=== PATIENT | male | born 1965 | race Caucasian/White ===

== ENCOUNTER → 2018-07-10 | Outpatient (CLI) | payer BC ==
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
== END | disposition home or self-care (01) ==
LOC: RADCTMAIN 08:43
PROVIDERS: ATTEND Internal Medicine
DX: G44.309 Post-traumatic headache, unspecified, not intractable (principal); Z88.5 Allergy status to narcotic agent
CPT/HCPCS: 70460; Q9967

== ENCOUNTER → 2018-07-16 | Outpatient (CLI) | payer BC | END | disposition home or self-care (01) | LOC: RADUSMAIN 07:49 | PROVIDERS: ATTEND Internal Medicine | DX: Z53.9 Procedure and treatment not carried out, unspecified reason (principal) ==

== ENCOUNTER → 2018-08-13 | Outpatient (CLI) | payer BC ==
[2018-08-13 16:39] LABS: Blood Urea Nitrogen 10 mg/dL (9-20)
--- NOTE | 2018-08-14 08:41 | CT ---
EXAMINATION TYPE: CT abdomen pelvis w con DATE OF EXAM: 08/13/2018 COMPARISON: 11/17/2013 HISTORY: Hematuria and difficulty urinating CT DLP: 1059 mGycm Automated exposure control for dose reduction was used. TECHNIQUE: Helical acquisition of images was performed from the lung bases through the pelvis. CONTRAST: Performed with Oral Contrast and with IV Contrast, patient injected with 100 mL of Isovue 300. FINDINGS: LUNG BASES: No significant abnormality is appreciated. LIVER/GB: There is slightly diminished attenuation of the hepatic parenchyma however this does not me et criteria for hepatic steatosis. Common bile duct is nondilated. PANCREAS: The main pancreatic duct is dilated measuring 4 mm. This is dilated within the pancreatic b tari however no pancreatic mass is seen. This is much more conspicuous on today's examination on the p rior as the prior was without intravenous contrast. SPLEEN: No significant abnormality is seen. ADRENALS: No significant abnormality is seen. KIDNEYS: 1.7 cm right mid to lower pole renal cyst is present. Within the midpole the right kidney th ere are 2 3 mm renal calculi that are nonobstructing. Within the left kidney there is an area of foca l scarring with cortical retraction in the superior pole and nonobstructing renal calculi. In the low er pole there is a 4 mm calculus and in the mid pole there are 2 renal calculi measuring 4 mm and 2 m m. Exophytic 1.9 cm left renal cyst and additional 9 mm renal cysts are also seen on the left. On delayed imaging there is normal and symmetric excretion of contrast from the kidneys with addition al hypoattenuated bilateral subcentimeter renal lesions that are too small to accurately characterize . FREE AIR: No free air is visualized. ADENOPATHY: No greater than 1 cm short axis lymph nodes are seen in the abdomen or pelvis. REPRODUCTIVE ORGANS: Prostate gland is heterogenous although not grossly enlarged. Urinary bladder is incompletely distended but appears unremarkable URINARY BLADDER: No significant abnormality is seen. OSSEOUS STRUCTURES: There is a stable sclerotic lesion, likely bone island within the right iliac fatou ne in comparison to the prior of 2013. BOWEL: No dilated large or small bowel. Appendix is air-filled and within normal limits. IMPRESSION: 1. BILATERAL NONOBSTRUCTING RENAL CALCULI AND BILATERAL RENAL CYSTS. 2. MAIN PANCREATIC DUCTAL DILATATION WITHOUT DISCRETE PANCREATIC LESION. SUSPICION IS FOR MAIN BRANCH IPMN, WHICH DOES CARRY A RISK OF MALIGNANCY. MRCP WITH AND WITHOUT CONTRAST IS RECOMMENDED TO [facility] FOR UNDERLYING PANCREATIC MASS OR IPMN. 3. HETEROGENEITY OF THE PROSTATE GLAND WITHOUT MARKED ENLARGEMENT TO INDICATE BENIGN PROSTATIC HYPERP LASIA IN THIS PATIENT WITH DIFFICULTY URINATING.
== END | disposition home or self-care (01) ==
LOC: RADCTMAIN 16:03
PROVIDERS: ATTEND Urology
DX: N20.0 Calculus of kidney (principal); N28.1 Cyst of kidney, acquired; K86.89 Other specified diseases of pancreas; Z88.5 Allergy status to narcotic agent
CPT/HCPCS: 82565; 84520; 74177; 36415; Q9967

== ENCOUNTER 2018-09-26 20:45 | Emergency (ER) | payer BC ==
[2018-09-26 20:57] VITALS: RESP 16
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
--- NOTE | 2018-09-26 22:10 | XR ---
EXAMINATION TYPE: XR tibia fibula RT DATE OF EXAM: 09/26/2018 COMPARISON: NONE HISTORY: Pain TECHNIQUE: 2 views FINDINGS: I see no fracture nor dislocation. Tibia and fibula appear intact. Joint spaces appear norm al. There is a plantar calcaneal spur. IMPRESSION: Negative right tibia and fibula exam.
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
[2018-09-26 23:02] VITALS: BP 140/78; PULSE 81; TEMP 98.6
== END 2018-09-26 23:00 | disposition home or self-care (01) ==
LOC: EC 20:45
DX: S93.401A Sprain of unspecified ligament of right ankle, initial encounter (principal); F17.200 Nicotine dependence, unspecified, uncomplicated; Z88.5 Allergy status to narcotic agent; V89.2XXA Person injured in unspecified motor-vehicle accident, traffic, initial encounter; Y93.I9 Activity, other involving external motion; Y92.89 Other specified places as the place of occurrence of the external cause
CPT/HCPCS: 73590; 73630; 99284; L4350

== ENCOUNTER 2019-05-31 09:09 | Emergency (ER) | payer BC ==
[2019-05-31 09:16] VITALS: BP 134/86; PULSE 77; RESP 18; TEMP 97.5
[2019-05-31] MEDS ORDERED: guaiFENesin-DM 600/30MG 1 EACH TAB.ER.12H PO STA (09:34)
[2019-05-31 10:09] LABS: Appearance,Urine Clear (Clear); Bilirubin,Urine Negative (Negative); Blood,Urine Negative (Negative); Color,Urine Light Yellow; Glucose,Urine (UA) Negative (Negative); Ketones,Urine Negative (Negative); Leukocyte Esterase,Urine Negative (Negative); Nitrite,Urine Negative (Negative); Protein,Urine Negative (Negative); Specific Gravity,Urine 1.007 (1.001-1.035); Urobilinogen,Urine <2.0 mg/dL (<2.0)
--- NOTE | 2019-05-31 10:13 | ED ---
URI HPI - General Chief Complaint: Upper Respiratory Infection Stated Complaint: Dizziness/weak/body aches Time Seen by Provider: 05/31/19 09:20 Source: patient Mode of arrival: ambulatory Limitations: no limitations - History of Present Illness Initial Comments: 54-year-old male patient presents to the emergency department today for evaluation of cough, nasal drainage, and body aches. Patient states his had symptoms for the last couple of weeks. Patient states he has had improvement of symptoms but doesn't feel completely improved. Denies any known fever. He is coughing up clear sputum. States he has been using his home inhalers including albuterol and Symbicort as directed. Denies any rash. Denies any known sick contacts. Does admit to smoking cigarettes. Patient denies any recent shortness breath, chest pain, abdominal pain, nausea, vomiting, diarrhea, constipation, back pain, numbness, tingling, dizziness, weakness, hematuria, dy suria, urinary urgency, urinary frequency, headache, visual changes, or any other complaints. - Related Data Previous Rx's Medication Instructions Recorded Hydrocodone/Acetaminophen [[place] 1 - 2 each PO Q6HR PRN #30 tab 11/17/13 5-325] Ondansetron Odt [Zofran Odt] 4 mg PO Q8HR PRN #10 tab 11/17/13 Tamsulosin [Flomax] 0.4 mg PO DAILY #10 cap 11/17/13 guaiFENesin-DM 600/30MG [Mucinex 1 each PO Q12HR #10 tab.er.12h 05/31/19 Dm] predniSONE 50 mg PO DAILY #5 tablet 05/31/19 Allergies Allergy/AdvReac Type Severity Reaction Status Date / Time codeine Allergy Anaphylaxis Verified 05/31/19 09:10 Review of Systems ROS Statement: Those systems with pertinent positive or pertinent negative responses have been documented in the HPI. ROS Other: All systems not noted in ROS Statement are negative. Past Medical History Additional Past Medical History / Comment(s): kidney stones History of Any Multi-Drug Resistant Organisms: None Reported Past Surgical History: Hernia Repair Past Psychological History: No Psychological Hx Reported Smoking Status: Current every day smoker Past Alcohol Use History: Daily Past Drug Use History: None Reported General Exam Limitations: no limitations General appearance: alert, in no apparent distress, other (This is a well- developed, well-nourished adult male patient in no acute distress. Vital signs upon presentation are temperature 97.5F. Pulse 77, respirations 18, blood pressure 134/86, pulse ox 98% on room air.) Eye exam: Present: normal appearance, PERRL, EOMI. Absent: scleral icterus, conjunctival injection, periorbital swelling ENT exam: Present: normal exam, normal oropharynx, mucous membranes moist, TM's normal bilaterally Neck exam: Present: normal inspection. Absent: tenderness, meningismus, lymphadenopathy Respiratory exam: Present: normal lung sounds bilaterally. Absent: respiratory distress, wheezes, rales, rhonchi, stridor Cardiovascular Exam: Present: regular rate, normal rhythm, normal heart sounds. Absent: systolic murmur, diastolic murmur, rubs, gallop, clicks GI/Abdominal exam: Present: soft, normal bowel sounds. Absent: distended, tenderness, guarding, rebound, rigid Neurological exam: Present: alert, oriented X3, CN II-XII intact Psychiatric exam: Present: normal affect, normal mood Skin exam: Present: warm, dry, intact, normal color. Absent: rash Course Vital Signs 05/31/19 09:11 Temperature 97.5 F L Pulse Rate 77 Respiratory 18 Rate Blood Pressure 134/86 O2 Sat by Pulse 98 Oximetry Medical Decision Making - Medical Decision Making 54-year-old male patient presents to the emergency department today for evaluation of cough and nasal drainage, and body aches. Patient states that symptoms for the last 2 weeks. Physical examination reveals clear equal lung sounds. Oxygen saturation is satisfactory. Influenza testing is negative. Chest x-ray shows no acute cardiopulmonary process. Urinalysis is negative. Did discuss findings and results with the patient. We'll treat for acute bronchitis with steroids and Mucinex DM. He is instructed to increase fluids and rest. He is instructed to follow-up with his primary care physician for further evaluation in 1-2 days. Return parameters were discussed in detail. He verbalizes understanding and agrees with this plan. - Lab Data Lab Results 05/31/19 05/31/19 Range/Units 09:46 09:46 Urine Color Light Yellow Urine Appearance Clear (Clear) Urine pH 6.0 (5.0-8.0) Ur Specific [place] 1.007 (1.001-1.035) Urine Protein Negative (Negative) Urine Glucose (UA) Negative (Negative) Urine Ketones Negative (Negative) Urine Blood Negative (Negative) Urine Nitrite Negative (Negative) Urine Bilirubin Negative (Negative) Urine Urobilinogen <2.0 (<2.0) mg/dL Ur Leukocyte Esterase Negative (Negative) Influenza Type A RNA Not Detected (Not Detectd) Influenza Type B (PCR) Not Detected (Not Detectd) - Radiology Data Radiology results: report reviewed, image reviewed Two-view x-ray of the chest is obtained. Report was reviewed in its entirety. Impression by Dr. Shankar shows no suspicious acute pulmonary process. Disposition Clinical Impression: Acute bronchitis Disposition: HOME SELF-CARE Condition: Good Instructions (If sedation given, give patient instructions): Acute Bronchitis (ED) Additional Instructions: Complete steroid prescription in full. Follow-up with your primary care physician for recheck in 1-2 days. Return to the emergency department immediately for any new, worsening, or concerning symptoms. Prescriptions: guaiFENesin-DM 600/30MG [Mucinex Dm] 1 each PO Q12HR #10 tab.er.12h predniSONE 50 mg PO DAILY #5 tablet Is patient prescribed a controlled substance at d/c from ED?: No Referrals: Arturo Esparza MD [Primary Care Provider] - 1-2 days Time of Disposition: 10:40
--- NOTE | 2019-05-31 10:28 | XR ---
EXAMINATION TYPE: XR chest 2V DATE OF EXAM: 05/31/2019 COMPARISON: NONE HISTORY: Cough for 2 weeks. TECHNIQUE: Frontal and lateral views of the chest are obtained. FINDINGS: There is no focal air space opacity, pleural effusion, or pneumothorax seen. The cardiac silhouette size is within normal limits. The osseous structures are intact. IMPRESSION: No suspicious acute pulmonary process.
[2019-05-31] MEDS ORDERED: predniSONE 50 MG TAB PO STA (10:40)
== END 2019-05-31 11:30 | disposition home or self-care (01) ==
LOC: EC 09:09
DX: J20.9 Acute bronchitis, unspecified (principal); F17.210 Nicotine dependence, cigarettes, uncomplicated; Z88.5 Allergy status to narcotic agent
CPT/HCPCS: 81003; 87502; 71046; 99283; J7512

== ENCOUNTER 2020-08-01 06:34 | Observation (INO) | payer BC ==
--- NOTE | 2020-08-01 06:54 | ED ---
Neuro HPI - General Source: patient Mode of arrival: ambulatory Limitations: no limitations - History of Present Illness Is the patient presenting with stroke symptoms?: Yes Last Known Well Date: 08/01/20 Last Known Well Time: 04:00 Onset/Timin -: minutes(s) <Katy Guerrero - Last Filed: 08/01/20 08:40> <Efrain Mcrae - Last Filed: 08/01/20 08:53> - General Chief Complaint: Neuro Symptoms/Deficit Stated Complaint: Neuro Symptoms Time Seen by Provider: 08/01/20 06:42 - History of Present Illness Initial Comments: 55-year-old male who denies any past medical history or daily medications, current every day smoker presents emergency department today for chief complaint of left arm sensation changes, speech feels different, "just doesnt feel well". Patient states that around 4 AM when he woke up he just did not feel well. He states that he felt like his left arm was a different temperature than the right arm he states it felt kind of sleepy and uncomfortable. He denies severe pain as a chest pressure jaw pain-- he states he smokes and uses and inhaler and has chronic shortness of breath, when asked if it has increased he states "maybe a little but not much". He denies any nausea, vomiting, fevers. Patient states that he co-workers felt like he was not acting right and brought him to the ER. Patient states in addition he feels light headed, slightly dizzy. He denies headaches. Patient denies vision loss/changes or double vision. Patient denies noting weakness of the extremities, only the left arm sensation change. Patient on arrival has no obvious speech changes, it appears clear and he is formulating his sentences appropriately. (Katy Guerrero) - Related Data Home Medications: Home Medications Medication Instructions Recorded Confirmed Albuterol Inhaler [Ventolin Hfa 1 - 2 puff INHALATION RT-Q4H PRN 08/01/20 08/01/20 Inhaler] Fluticasone/Umeclidin/Vilanter 1 puff INHALATION RT-DAILY 08/01/20 08/01/20 [Treheidi Ellipta 100-62.5-25] Allergies/Adverse Reactions: Allergies Allergy/AdvReac Type Severity Reaction Status Date / Time codeine Allergy Anaphylaxis Verified 08/01/20 07:30 Review of Systems ROS Other: All systems not noted in ROS Statement are negative. <Katy Guerrero - Last Filed: 08/01/20 08:40> ROS Other: All systems not noted in ROS Statement are negative. <Efrain Mcrae - Last Filed: 08/01/20 08:53> ROS Statement: Those systems with pertinent positive or pertinent negative responses have been documented in the HPI. General Exam Limitations: no limitations <Katy Guerrero - Last Filed: 08/01/20 08:40> - General Exam Comments Initial Comments: General: The patient is awake and alert, in no distress Eye: +2 mm pupils are equal, round and reactive to light, extra-ocular movements are intact. No nystagmus. There is normal conjunctiva bilaterally. No signs of icterus. Ears, nose, mouth and throat: There are moist mucous membranes and no oral lesions. Neck: The neck is supple, there is no tenderness or JVD. Cardiovascular: There is a regular rate and rhythm. No murmur, rub or gallop is appreciated. Respiratory: Lungs are clear to auscultation, respirations are non-labored, breath sounds are equal. No wheezes, stridor, rales, or rhonchi. Gastrointestinal: Soft, non-distended, non-tender abdomen without masses or organomegaly noted. There is no rebound or guarding present. Musculoskeletal: Normal ROM, no tenderness. Strength 5/5. Sensation intact. Pulses equal bilaterally 2+. Neurological: A&O x 3. CN II-XII intact, memory intact to immediately, intermediate and jail recall. Able to follow simple verbal. Able to name a common object (pen). High quality, labial (pa) and lingual (la) speech. Low quality posterior pharynx/larynx (ga) voice sounds. Able to express general knowledge (days in a week). No hemineglect or inattention noted. Finger agnosia (-) and spatially oriented (identified L index finger touched R shoulder with L index finger).Light touch and temperature sensation present over the face, chest, abdomen, back, and LE bilaterally--however patient states that his left arm feels different to touch, less than the right and warmer/fuzzier. Able to localize point during point localization b/l and extinction. No visible bulk atrophy, hypertrophy, fasciculations, or myoclonus of the UE or LE b/l. Full PROM in UE and LE b/l. Bilateral muscle strength 5/5 for the following muscles: deltoid, biceps, triceps, brachioradialis, wrist extensors/flexor, hip flexor, hip abductors/adductors, hamstrings, quadriceps, feet dorsiflexors/plantar flexors. Finger to nose, finger to the examiners finger, and heel to chowdhury c oordinated and accurate b/l. Coordinated and even demonstration of hand flip, finger to thumb, and toe tap b/l. Gait is coordinated and even in stride with tandem, toe and heel walk.(+) left arm drift. No nuchal rigidity. Skin: Skin is warm and dry and no rashes or lesions are noted. Psychiatric: Cooperative, appropriate mood & affect, normal judgment. NIH: 2 from exam 2-3 as patient feels his speech is off, but does appear clear (Katy Guerrero) Stroke MDM - Lab Data Result diagrams: 08/01/20 06:57 08/01/20 06:57 - NIH Stroke Scale 1a. Level of Consciousness: (0) alert 1b. LOC Questions: (0) answers correctly 1c. LOC Commands: (0) performs tasks correctly 2. Best Gaze: (0) normal 3. Visual: (0) no visual loss 4. Facial Palsy: (0) normal symmetrical movement 5a. Motor Arm Left: (1) drift 5b. Motor Arm Right: (0) no drift 6a. Motor Leg Left: (0) no drift 6b. Motor Leg Right: (0) no drift 7. Limb Ataxia: (0) absent 8. Sensory: (1) mild/moderate sensory loss 9. Best Language: (0) no aphasia 10. Dysarthria: (0) normal 11. Extinction/Inattention: (0) no abnormality - Thrombolytic Inclusion/Exclusion Thrombolytic Exclusion Criteria: Onset of Symptoms Unknown <Katy Guerrero - Last Filed: 08/01/20 08:40> - Lab Data Result diagrams: 08/01/20 06:57 08/01/20 06:57 <Efrain Mcrae - Last Filed: 08/01/20 08:53> - Lab Data Lab Results 08/01/20 08/01/20 08/01/20 Range/Units 06:57 06:57 06:57 WBC 6.4 (3.8-10.6) k/uL RBC 5.06 (4.30-5.90) m/uL Hgb 15.7 (13.0-17.5) gm/dL Hct 46.0 (39.0-53.0) % MCV 91.0 (80.0-100.0) fL MCH 31.0 (25.0-35.0) pg MCHC 34.1 (31.0-37.0) g/dL RDW 12.6 (11.5-15.5) % Plt Count 191 (150-450) k/uL MPV 7.0 Neutrophils % 61 % Lymphocytes % 28 % Monocytes % 6 % Eosinophils % 3 % Basophils % 1 % Neutrophils # 3.9 (1.3-7.7) k/uL Lymphocytes # 1.8 (1.0-4.8) k/uL Monocytes # 0.4 (0-1.0) k/uL Eosinophils # 0.2 (0-0.7) k/uL Basophils # 0.1 (0-0.2) k/uL PT 10.3 (9.0-12.0) sec INR 1.0 (<1.2) APTT 20.7 L (22.0-30.0) sec Sodium 135 L (137-145) mmol/L Potassium 4.3 (3.5-5.1) mmol/L Chloride 104 (98-107) mmol/L Carbon Dioxide 25 (22-30) mmol/L Anion Gap 6 mmol/L BUN 11 (9-20) mg/dL Creatinine 0.84 (0.66-1.25) mg/dL Est GFR (CKD-EPI)AfAm >90 (>60 ml/min/1.73 sqM) Est GFR (CKD-EPI)NonAf >90 (>60 ml/min/1.73 sqM) Glucose 122 H (74-99) mg/dL Calcium 9.2 (8.4-10.2) mg/dL Total Bilirubin 0.8 (0.2-1.3) mg/dL AST 22 (17-59) U/L ALT 16 (4-49) U/L Alkaline Phosphatase 42 (38-126) U/L Troponin I (0.000-0.034) ng/mL Total Protein 6.7 (6.3-8.2) g/dL Albumin 4.3 (3.5-5.0) g/dL 08/01/20 Range/Units 06:57 WBC (3.8-10.6) k/uL RBC (4.30-5.90) m/uL Hgb (13.0-17.5) gm/dL Hct (39.0-53.0) % MCV (80.0-100.0) fL MCH (25.0-35.0) pg MCHC (31.0-37.0) g/dL RDW (11.5-15.5) % Plt Count (150-450) k/uL MPV Neutrophils % % Lymphocytes % % Monocytes % % Eosinophils % % Basophils % % Neutrophils # (1.3-7.7) k/uL Lymphocytes # (1.0-4.8) k/uL Monocytes # (0-1.0) k/uL Eosinophils # (0-0.7) k/uL Basophils # (0-0.2) k/uL PT (9.0-12.0) sec INR (<1.2) APTT (22.0-30.0) sec Sodium (137-145) mmol/L Potassium (3.5-5.1) mmol/L Chloride (98-107) mmol/L Carbon Dioxide (22-30) mmol/L Anion Gap mmol/L BUN (9-20) mg/dL Creatinine (0.66-1.25) mg/dL Est GFR (CKD-EPI)AfAm (>60 ml/min/1.73 sqM) Est GFR (CKD-EPI)NonAf (>60 ml/min/1.73 sqM) Glucose (74-99) mg/dL Calcium (8.4-10.2) mg/dL Total Bilirubin (0.2-1.3) mg/dL AST (17-59) U/L ALT (4-49) U/L Alkaline Phosphatase (38-126) U/L Troponin I <0.012 (0.000-0.034) ng/mL Total Protein (6.3-8.2) g/dL Albumin (3.5-5.0) g/dL - Medical Decision Making 55-year-old male presenting today for chief complaint of feeling off, sensation deficit left arm--speech changes this morning that he states seemed improved. NIH2. Symptoms were noticed at 4AM but this was on awakening. Last known well around 8PM. Patient had improvement of sensation (resolved) and improved partially of left arm drift on personal re-evaluation. patient state she is starting to feel better. Patient CT/CTA (-). Neuro-tilt tray driver stated pt was not TPA candidate. Patient case discussed with both Dr. Bowden initially then Dr. Mcrae whom were my attending who are agreeable to admission and care plan. Neurology on consultation. (Katy Guerrero) Past Medical History Additional Past Medical History / Comment(s): kidney stones History of Any Multi-Drug Resistant Organisms: None Reported Past Surgical History: Hernia Repair Past Psychological History: No Psychological Hx Reported Smoking Status: Current every day smoker Past Alcohol Use History: Occasional Past Drug Use History: None Reported <Katy Guerrero - Last Filed: 08/01/20 08:40> Course <Katy Guerrero - Last Filed: 08/01/20 08:40> <Efrain Mcrae - Last Filed: 08/01/20 08:53> Vital Signs 08/01/20 08/01/20 08/01/20 06:34 07:00 07:30 Temperature 98 F Pulse Rate 74 71 61 Respiratory 20 18 16 Rate Blood Pressure 145/93 134/87 O2 Sat by Pulse 98 98 99 Oximetry 08/01/20 08/01/20 07:50 08:13 Temperature Pulse Rate 62 58 L Respiratory 18 18 Rate Blood Pressure 144/91 136/83 O2 Sat by Pulse 98 98 Oximetry - Reevaluation(s) Reevaluation #1: Dr. Bowden spoke with neuro-tilt tray driver- who felt this is wake up stroke/and given NIH that he is not TPA candidate at this time. 08/01/20 07:08 (Katy Guerrero) 08/01/20 08:52 Patient was earlier reexamined and reevaluated by myself, Dr. Mcrae. Patient resting complain bed. Patient does have drift of his left arm on exam. Patient states there is some mild discomfort of his left upper trapezius/shoulder region. No tenderness on exam. No C-spine tenderness. Patient denies neck d iscomfort. There is concern for mild stroke symptoms. Patient will be admitted for neurology evaluation. Case discussed with Dr. Moscoso, who will admit covering for Dr. corey (Efrain Mcrae) Disposition Is patient prescribed a controlled substance at d/c from ED?: No Time of Disposition: 08:16 Decision to Admit Reason: Admit from EC Decision Date: 08/01/20 Decision Time: 08:16 <Katy Guerrero - Last Filed: 08/01/20 08:40> <Efrain Mcrae - Last Filed: 08/01/20 08:53> Clinical Impression: National Institutes of Health (NIH) Stroke Scale motor arm score 1, drift, arm drifts from starting position (palms down extended 90 degrees if sitting or 45 degrees if supine) to intermediate position prior to end of full 10 seconds but never relies on support, Alteration in speech, Light-headed, Paresthesia of left arm Disposition: ADMITTED IP TO THIS [facility] Condition: Stable
[2020-08-01 07:08] LABS: Basophils # (A) 0.1 k/uL (0-0.2); Basophils % (A) 1 %; Eosinophils # (A) 0.2 k/uL (0-0.7); Eosinophils % (A) 3 %; HGB 15.7 gm/dL (13.0-17.5); Lymphocytes # (A) 1.8 k/uL (1.0-4.8); Lymphocytes % (A) 28 %; MCHC 34.1 g/dL (31.0-37.0); Monocytes # (A) 0.4 k/uL (0-1.0); Monocytes % (A) 6 %; Neutrophils # (A) 3.9 k/uL (1.3-7.7); Neutrophils % (A) 61 %; Platelet Count 191 k/uL (150-450); RBC 5.06 m/uL (4.30-5.90); RDW 12.6 % (11.5-15.5); WBC 6.4 k/uL (3.8-10.6)
[2020-08-01 07:16] LABS: Prothrombin Time 10.3 sec (9.0-12.0)
[2020-08-01 07:17] LABS: ALT 16 U/L (4-49); AST 22 U/L (17-59); African American GFR (CKD) >90 (>60 ml/min/1.73 sqM); Albumin 4.3 g/dL (3.5-5.0); Alkaline Phosphatase 42 U/L (38-126); Anion Gap 6 mmol/L; Blood Urea Nitrogen 11 mg/dL (9-20); Calcium 9.2 mg/dL (8.4-10.2); Carbon Dioxide 25 mmol/L (22-30); Chloride 104 mmol/L (98-107); Glucose 122 mg/dL (74-99); Non-African American GFR(CKD) >90 (>60 ml/min/1.73 sqM); Potassium 4.3 mmol/L (3.5-5.1); Sodium 135 mmol/L (137-145); Total Bilirubin 0.8 mg/dL (0.2-1.3); Total Protein 6.7 g/dL (6.3-8.2)
--- NOTE | 2020-08-01 07:27 | CT ---
EXAMINATION TYPE: CT brain wo con for TPA DATE OF EXAM: 08/01/2020 HISTORY: Neuro deficit, left arm weakness and headache. CT DLP: 1118.8 mGycm. Automated Exposure Control for Dose Reduction was Utilized. TECHNIQUE: CT scan of the head is performed without contrast. COMPARISON: CT brain July 10, 2018. FINDINGS: There is no acute intracranial hemorrhage or midline shift identified. Ventricles and sul ci within normal limits in size for age. Smith-white matter differentiation maintained. The globes ar e intact and the visualized sinuses are clear. IMPRESSION: No acute intracranial hemorrhage or midline shift. No significant change from prior.
--- NOTE | 2020-08-01 07:28 | XR ---
EXAMINATION TYPE: XR chest 1V DATE OF EXAM: 08/01/2020 COMPARISON: Chest x-ray May 31, 2019 HISTORY: Acute onset neuro deficit. Weakness. TECHNIQUE: Single AP portable frontal upright view of the chest is obtained. FINDINGS: Overlying EKG leads. There is no suspicious focal air space opacity, pleural effusion, or p neumothorax seen. The cardiac silhouette size is within normal limits. The osseous structures are intact. IMPRESSION: No acute process. No significant change from prior.
[2020-08-01 07:37] LABS: Partial Thromboplastin Time 20.7 sec (22.0-30.0)
[2020-08-01] MEDS ORDERED: ASPIRIN 325 MG TAB PO STA (08:13)
--- NOTE | 2020-08-01 08:20 | CT ---
EXAMINATION TYPE: CT angio head neck DATE OF EXAM: 08/01/2020 COMPARISON: Correlation CT brain same day HISTORY: 55-year-old male Neuro deficit, acute, stroke suspected, left arm weakness and headache. TECHNIQUE: Contiguous axial scanning of the head and neck performed with IV Contrast, patient injecte d with 65 mL of Isovue 370. Coronal/sagittal MIP reconstructions performed. 3-D reconstructions gener ated on a dedicated independent workstation. CT DLP: 580 mGycm Automated exposure control for dose reduction was used. FINDINGS: NECK: Bovine configuration to the aortic arch. The vertebral arteries are codominant and patent throughout their course. The right common and internal carotid arteries are widely patent. The left common and internal carotid arteries are widely patent. HEAD: The vertebral and basilar arteries are patent. There is persistent origin of the right posterio r cerebral artery. Posterior circulation otherwise appears patent. The internal carotid arteries and remainder of the anterior circulation are patent. No aneurysmal change seen on the MIP reconstructions. IMPRESSION: 1. NECK: WIDELY PATENT CAROTID AND VERTEBRAL ARTERIES OF THE NECK. 2. HEAD: NO LARGE VESSEL INTRACRANIAL ARTERIAL OCCLUSION, SIGNIFICANT STENOSIS, OR ANEURYSMAL CHANGE IS SEEN.
[2020-08-01] MEDS ORDERED: ALBUTEROL NEBULIZED 2.5 MG/3 ML INHALATION PRN (10:33)
[2020-08-01 10:58] LABS: Appearance,Urine Clear (Clear); Bilirubin,Urine Negative (Negative); Blood,Urine Moderate (Negative); Color,Urine Yellow; Glucose,Urine (UA) Negative (Negative); Ketones,Urine Negative (Negative); Leukocyte Esterase,Urine Negative (Negative); Mucus,Urine Rare /hpf; Nitrite,Urine Negative (Negative); Protein,Urine Negative (Negative); RBC,Urine 181 /hpf (0-5); Urobilinogen,Urine <2.0 mg/dL (<2.0); WBC,Urine 1 /hpf (0-5)
[2020-08-01 11:05] LABS: Amphetamine Screen,Urine Not Detected (NotDetected); Barbiturate Screen,Urine Not Detected (NotDetected); Benzodiazepines Screen,Urine Not Detected (NotDetected); Cocaine Screen,Urine Not Detected (NotDetected); Methadone Screen, Urine Not Detected (NotDetected); Opiate Screen,Urine Not Detected (NotDetected); Oxycodone Screen, Urine Not Detected (NotDetected); Phencyclidine Screen,Urine Not Detected (NotDetected); Tricyclic Antidepressant,Urine Not Detected (NotDetected); Urn Cannabinoid Scrn Not Detected (NotDetected)
[2020-08-01 11:06] LABS: Specific Gravity,Urine >1.050 (1.001-1.035)
--- NOTE | 2020-08-01 12:42 | P.CNNES ---
History of Present Illness Consult date: 08/01/20 Requesting physician: Katy Guerrero Reason for Consult: sensation loss over left arm and speech difficulty concern for cva History of Present Illness: This is a 55-year-old gentleman with no prior medical history or not on any medication but has history of tobacco use who presented emergency department on 08/01/2020 with a chief complaint of left arm sensation change as well as speech feels different. Patient stated that he woke up 4:00 in the morning today and was last normal at 9:00 in the PM yesterday and when he woke up he noticed that he's having left shoulder pain that was shooting down to the entire left hand and then as well as the neck and was reading up as well as he had that difficulty getting his words out and and he noticed that his left hand was weak in which the the cup dropped out of the left hand. The episode lasted 3 hours then resolved. He denies of any visual disturbance, any neck pain, any paresthesia of the lower examined or weakness of lower extremity, any difficulty swallowing. He feels he is back to his baseline. He denies of any stroke or TIAs in the past. He has a chronic history of tobacco use in which she smokes 3/4-1 pack a day and he's been smoking for more than 30 years. He socially drinks alcohol. He denies being on any medication. Patient denies off any fevers or any headaches. As a result the stroke code was activated in the ED: Initial vital signs: As a blood pressure of 145/93, heart rate of 71, respiratory of 18, temperature of 98F oral and pulse ox of 98% at room air. CT of the head is reported as no acute intracranial hemorrhage or midline shift. No significant change from prior. CT angiography of the head and neck was reported as for the neck it's reported as widely patent carotid and vertebral arteries of the neck. While the head no large vessel intracranial arterial occlusion, significant stenosis or aneurysm changes seen. EKG is reported as normal sinus rhythm. Normal EKG. White blood cell 6.4 which is normal. Sodium is 135 which is mildly low. Serum glucose is 122. The serum calcium is 9.2 which is normal. Patient did not receive IV TPA since the outside the window as well as symptoms resolved. Review of Systems Review of system: The 12 point system was reviewed and apparent positive and negative per HPI. Past Medical History Past Medical History: COPD, Eye Disorder, GERD/Reflux Additional Past Medical History / Comment(s): Chronic SOB, nephrolithiasis/pt passed stones on his own, diarrhea/abdomina feels bloated, chronic L hip and low back pain, bilatateral eye "floaters", past concussion/arm fx after 32 foot fall History of Any Multi-Drug Resistant Organisms: None Reported Past Surgical History: Hernia Repair, Orthopedic Surgery Additional Past Surgical History / Comment(s): R thumb closed reduction/pinning, colonoscopy, L inguinal hernia repair. Past Anesthesia/Blood Transfusion Reactions: No Reported Reaction Smoking Status: Current every day smoker - Past Family History Father Family Medical History: Coronary Artery Disease (CAD), Myocardial Infarction (VA), Renal Disease Additional Family Medical History / Comment(s): Father is living. He had a VA at the age of 78yrs. He is receiving renal dialysis. Mother Additional Family Medical History / Comment(s): Mother is . She had a colectomy/pt does not know reason and heart problems. Medications and Allergies Home Medications Medication Instructions Recorded Confirmed Type Albuterol Inhaler [Ventolin Hfa 1 - 2 puff INHALATION RT-Q4H PRN 08/01/20 08/01/20 History Inhaler] Fluticasone/Umeclidin/Vilanter 1 puff INHALATION RT-DAILY 08/01/20 08/01/20 History [Trelegy Ellipta 100-62.5-25] Allergies Allergy/AdvReac Type Severity Reaction Status Date / Time codeine Allergy Anaphylaxis Verified 08/01/20 07:30 Physical Examination - Vital Signs Vital Signs: Vital Signs Temp Pulse Pulse Resp BP BP Pulse Ox 08/01/20 09:56 97.6 F 56 L 16 133/77 96 08/01/20 08:42 97.6 F 08/01/20 08:13 58 L 18 136/83 98 08/01/20 07:50 62 18 144/91 98 08/01/20 07:30 61 16 134/87 99 08/01/20 07:00 71 18 145/93 98 08/01/20 06:34 98 F 74 20 98 Intake and Output 07/31/20 08/01/20 08/01/20 22:59 06:59 14:59 Other: Voiding Method Toilet Weight 68.039 kg 68.039 kg GENERAL: The patient is lying in bed and is not in acute distress. CHEST: The heart rate is regular rate rhythm. No murmurs to auscultation. No carotid bruit bilaterally. LUNG: Clear to auscultation bilaterally no wheezing noted throughout. Not labored breathing. ABDOMEN/GI: Bowel sounds present in all 4 quadrants. No tenderness to palpation throughout. NEUROLOGICAL: Higher mental function: The patient is awake, alert, oriented to self, place and time. Patient is following commands. No aphasia and no neglect. Cranial nerves: The pupils are round, equal and reactive to light and accommodation. Visual locke are full to confrontation throughout. Extraocular movement is intact no nystagmus is noted. Facial sensation is normal to touch throughout. The facial strength is normal throughout. Hearing is normal bilaterally to hand rub. Tongue is midline and moved [id number] without any difficulty. No dysarthria is noted. Shoulder shrug is normal bilaterally. Motor: Gait is normal with normal arm swings. The strength is 5 over 5 throughout. Normal tone and bulk. Cerebellum: Normal finger to nose heel to chowdhury bilaterally. Sensation: Sensation is normal to touch throughout. Reflexes (right/left): 2+ throughout. Plantars are downgoing bilaterally. Results AST is 22 and ALT of 16. Urine tox screen the basic is nondetected Kruse virus PCR is nondetected. Urinalysis appears clear, urine blood is moderate, urine red blood cell is 181 - Laboratory Findings CBC and BMP: 08/01/20 06:57 08/01/20 06:57 Abnormal Lab Findings: Abnormal Labs 08/01/20 08/01/20 08/01/20 06:52 06:57 06:57 APTT 20.7 L Sodium 135 L Glucose 122 H Ur Specific [place] >1.050 H Urine Blood Moderate H Urine RBC 181 H Urine Mucus Rare H Assessment and Plan Assessment: This is a 55-year-old gentleman that presented to emergency department on 08/01/2020 for pareshesia over the left upper extremity and difficulty getting words out with left arm weakness. His symptoms resolved. Transient ischemic attack (Episode of paresthesia over left upper extremity, with weakness and difficulty getting words out lasting couple hours). Unknow exact etiology, possibly small vessel disease. Chronic History of nicotine use (smokes 3/4 PPD t 1PPD >30 years) Plan: Patient received aspirin 325 once in the ED. I started the patient on aspirin 81 mg and plavix 75mg for dual antiplateletes then discontinue Plavix after 21 days but continue ASA indefidently for secondary stroke prophyalxis. I started him on Lipitor 40 mg for secondary stroke prophylaxis. I ordered MRI of the brain I ordered 2-D echo Lipid panel is ordered by the ED team is pending. PT OT and COUTIERIER are consulted by the ED team Continue every 4 neuro checks. Patient on the cardiac monitoring is to be continued. Patient was counseled on tobacco cessation. Thank you for the consultation Yuval Grace M.D. Neuro-hospitalist Time with Patient: Greater than 30
[2020-08-01] MEDS: CLOPIDOGREL 75 MG TAB PO SCH (13:00)
--- NOTE | 2020-08-01 15:42 | MR ---
EXAMINATION TYPE: MR brain wo con DATE OF EXAM: 08/01/2020 COMPARISON: CT brain 08/01/2020 HISTORY: Left arm paresthesia and speech difficulty CONTRAST: Performed utilizing 0 mL intravenous Gadavist gadolinium contrast. TECHNIQUE: Multiplanar, multiecho imaging on a 3.0 Megan magnet is performed through the brain. Stud y is performed within 24 hours of arrival to the hospital. The craniovertebral junction is normal. The pituitary is normal. Diffusion-weighted imaging is performed. No abnormal hyperintensity is present to suggest an acute i ntracranial infarct or acute ischemic change. There are scattered punctate areas of hyperintensity on T2 and Inversion Recovery weighted sequences which are non-specific but can be related to microvascular ischemic changes. This is greater than exp ected for patients of this age. Ventricles and sulci are appropriate for the patient age. IMPRESSIONS: 1. Chronic appearing periventricular white matter ischemic changes. 2. No suspicious acute ischemic changes
[2020-08-01] MEDS: NICOTINE 21MG/24HR PATCH TRANSDERM SCH (17:47)
[2020-08-01] MEDS ORDERED: ATORVASTATIN 40 MG TAB PO SCH (21:00)
[2020-08-02] MEDS: IPRATROPIUM 0.5 MG/2.5 ML NEBU INHALATION SCH ×2 (07:19→10:58)
[2020-08-02 07:44] LABS: Basophils # (A) 0.1 k/uL (0-0.2); Basophils % (A) 1 %; Eosinophils # (A) 0.2 k/uL (0-0.7); Eosinophils % (A) 2 %; HCT 48.8 % (39.0-53.0); HGB 16.5 gm/dL (13.0-17.5); Lymphocytes # (A) 2.2 k/uL (1.0-4.8); Lymphocytes % (A) 29 %; MCH 31.3 pg (25.0-35.0); MCHC 33.8 g/dL (31.0-37.0); MCV 92.6 fL (80.0-100.0); Mean Platelet Volume 6.9; Monocytes # (A) 0.4 k/uL (0-1.0); Monocytes % (A) 5 %; Neutrophils # (A) 4.6 k/uL (1.3-7.7); Neutrophils % (A) 61 %; Platelet Count 208 k/uL (150-450); RBC 5.27 m/uL (4.30-5.90); RDW 12.6 % (11.5-15.5); WBC 7.5 k/uL (3.8-10.6)
[2020-08-02 07:57] LABS: African American GFR (CKD) >90 (>60 ml/min/1.73 sqM); Anion Gap 7 mmol/L; Blood Urea Nitrogen 12 mg/dL (9-20); Calcium 9.1 mg/dL (8.4-10.2); Carbon Dioxide 26 mmol/L (22-30); Chloride 102 mmol/L (98-107); Cholesterol 233 mg/dL (<200); Glucose 105 mg/dL (74-99); HDL Cholesterol 45 mg/dL (40-60); LDL Cholesterol,Calculated 161 mg/dL (0-99); Non-African American GFR(CKD) >90 (>60 ml/min/1.73 sqM); Potassium 4.4 mmol/L (3.5-5.1); Sodium 135 mmol/L (137-145); Triglycerides 136 mg/dL (<150)
[2020-08-02] MEDS ORDERED: SYMBICORT 80-4.5 MCG INHALER INHALATION SCH (08:00)
[2020-08-02] MEDS: CLOPIDOGREL 75 MG TAB PO SCH (08:42)
[2020-08-02] MEDS: NICOTINE 21MG/24HR PATCH TRANSDERM SCH (08:43)
[2020-08-02] MEDS ORDERED: ASPIRIN 81 MG PO SCH (09:00)
--- NOTE | 2020-08-02 09:30 | P.HPIM ---
History of Present Illness H&P Date: 08/01/20 Chief Complaint: Left arm numbness 55-year-old male who denies any past medical history or daily medications, current every day smoker presents emergency department today for chief complaint of left arm sensation changes, speech feels different, "just doesnt feel well". Patient states that around 4 AM when he woke up he just did not feel well. He states that he felt like his left arm was a different temperature than the right arm he states it felt kind of sleepy and uncomfortable. He denies severe pain as a chest pressure jaw pain-- he states he smokes and uses and inhaler and has chronic shortness of breath, when asked if it has increased he states "maybe a little but not much". He denies any nausea, vomiting, fevers. Patient states that he co-workers felt like he was not acting right and brought him to the ER. Patient states in addition he feels light headed, slightly dizzy. He denies headaches. Patient denies vision loss/changes or double vision. Patient denies noting weakness of the extremities, only the left arm sensation change. Patient on arrival has no obvious speech changes, it appears clear and he is formulating his sentences appropriately. In the ED stroke code was activated: CT of the head-no acute intracranial hemorrhage or midline shift. No significant change from prior. CT angiography of the head and neck was reported as for the neck it's reported as widely patent carotid and vertebral arteries of the neck. While the head no large vessel intracranial arterial occlusion, significant stenosis or aneurysm changes seen. EKG is reported as normal sinus rhythm. Normal EKG. White blood cell 6.4 which is normal; Sodium is 135 which is mildly low; Serum glucose is 122. The serum calcium is 9.2 which is normal. Patient did not receive IV TPA since the outside the window as well as symptoms resolved. Review of Systems REVIEW OF SYSTEMS: CONSTITUTIONAL: No fever, no malaise, no fatigue. HEENT: No recent visual problems or hearing problems. Denied any sore throat. CARDIOVASCULAR: No chest pain, orthopnea, PND, no palpitations, no syncope. PULMONARY: No shortness of breath, no cough, no hemoptysis. GASTROINTESTINAL: No diarrhea, no nausea, no vomiting, no abdominal pain. NEUROLOGICAL: No headaches, no weakness, no numbness. HEMATOLOGICAL: Denies any bleeding or petechiae. GENITOURINARY: Denies any burning micturition, frequency, or urgency. MUSCULOSKELETAL/RHEUMATOLOGICAL: Denies any joint pain, swelling, or any muscle pain. ENDOCRINE: Denies any polyuria or polydipsia. The rest of the 14-point review of systems is negative. Past Medical History Past Medical History: COPD, Eye Disorder, GERD/Reflux Additional Past Medical History / Comment(s): Chronic SOB, nephrolithiasis/pt passed stones on his own, diarrhea/abdomina feels bloated, chronic L hip and low back pain, bilatateral eye "floaters", past concussion/arm fx after 32 foot fall History of Any Multi-Drug Resistant Organisms: None Reported Past Surgical History: Hernia Repair, Orthopedic Surgery Additional Past Surgical History / Comment(s): R thumb closed reduction/pinning, colonoscopy, L inguinal hernia repair. Past Anesthesia/Blood Transfusion Reactions: No Reported Reaction Smoking Status: Current every day smoker - Past Family History Father Family Medical History: Coronary Artery Disease (CAD), Myocardial Infarction (GA), Renal Disease Additional Family Medical History / Comment(s): Father is living. He had a GA at the age of 78yrs. He is receiving renal dialysis. Mother Additional Family Medical History / Comment(s): Mother is . She had a colectomy/pt does not know reason and heart problems. Medications and Allergies Home Medications Medication Instructions Recorded Confirmed Type Albuterol Inhaler [Ventolin Hfa 1 - 2 puff INHALATION RT-Q4H PRN 08/01/20 08/01/20 History Inhaler] Fluticasone/Umeclidin/Vilanter 1 puff INHALATION RT-DAILY 08/01/20 08/01/20 History [Estefanía Heredia 100-62.5-25] Allergies Allergy/AdvReac Type Severity Reaction Status Date / Time codeine Allergy Anaphylaxis Verified 08/01/20 07:30 Physical Exam Vitals: Vital Signs Temp Pulse Pulse Resp BP BP Pulse Ox 08/01/20 09:56 97.6 F 56 L 16 133/77 96 08/01/20 08:42 97.6 F 08/01/20 08:13 58 L 18 136/83 98 08/01/20 07:50 62 18 144/91 98 08/01/20 07:30 61 16 134/87 99 08/01/20 07:00 71 18 145/93 98 08/01/20 06:34 98 F 74 20 98 Intake and Output 07/31/20 08/01/20 08/01/20 22:59 06:59 14:59 Other: Voiding Method Toilet Weight 68.039 kg 68.039 kg - Constitutional General appearance: Present: average body habitus, cooperative, no acute distress Eyes: Present: anicteric sclerae, EOMI, PERRLA, normal appearance ENT: Present: hearing grossly normal, normal oropharynx Neck: Present: normal ROM. Absent: lymphadenopathy, rigidity, thyromegaly Carotids: negative: bruit present Thyroid: bilateral: normal size, negative: enlarged, nodule Respiratory: bilateral: CTA, negative: rales, rhonchi, wheezing Cardiovascular Rhythm: regular; normal: S1, S2;Absent: systolic murmur, diastolic murmur General gastrointestinal: Present: normal bowel sounds, soft. Absent: distended, organomegaly, tenderness Genitourinary Comment(s): deferred Integumentary: Present: normal turgor. Absent: jaundiced, rash, ulcer Neurologic: Present: CNII-XII intact. Absent: focal deficits Musculoskeletal: Present: gait normal, strength equal bilaterally Psychiatric: Present: A&O x's 3, appropriate affect, intact judgment & insight Results CBC & Chem 7: 08/02/20 06:50 08/02/20 06:50 Labs: Abnormal Lab Results - Last 24 Hours (Table) 08/01/20 08/01/20 Range/Units 06:57 06:57 APTT 20.7 L (22.0-30.0) sec Sodium 135 L (137-145) mmol/L Glucose 122 H (74-99) mg/dL Thrombosis Risk Factor Assmnt - Choose All That Apply Any of the Below Risk Factors Present?: Yes Each Factor Represents 1 point: Abnormal pulmonary function (COPD), Age 41-60 years Other Risk Factors: No Other congenital or acquired thrombophilia - If yes, enter type in comment: No Each Risk Factor Represents 5 Points: Stroke (< 1 month) Thrombosis Risk Factor Assessment Total Risk Factor Score: 7 Thrombosis Risk Factor Assessment Level: High Risk Assessment and Plan Assessment: 1. TIA; patient received aspirin 325 mg in ED; has been evaluated by neurology and is recommended to start on aspirin 81 mg daily with Plavix 75 mg daily for DPT; patient will discontinue Plavix after 21 days but advised aspirin indefinitely for secondary stroke prophylaxis - Started on Lipitor 40 mg by mouth daily at bedtime for stroke prophylaxis - Neurology recommending MRI of the brain, 2-D echo - PT/OT/CHIEF BUSINESS DEVELOPMENT OFFICER are consulted; continue neuro checks every 4 hours 2. Uncontrolled hypertension; patient has no history of hypertension; we will monitor blood pressure closely and make recommendations if blood pressure remains elevated 3. COPD/asthma; not in exacerbation; continue home inhaler therapy 4. Gastroesophageal reflux disease; continue with PPI 5. Chronic tobacco use; counseling done on need for smoking cessation DVT prophylaxis; SCDs CODE STATUS; full code
--- NOTE | 2020-08-02 11:00 | ECHOF ---
Referral Reason:stroke MEASUREMENTS -------- HEIGHT: 180.3 cm WEIGHT: 68.0 kg BP: 133/77 RVIDd: 3.0 cm (< 3.3) IVSd: 1.1 cm (0.6 - 1.1) LVIDd: 4.6 cm (3.9 - 5.3) LVPWd: 1.2 cm (0.6 - 1.1) IVSs: 1.6 cm LVIDs: 3.0 cm LVPWs: 1.6 cm LA Diam: 3.2 cm (2.7 - 3.8) LAESV Index (A-L): 22.84 ml/m Ao Diam: 3.4 cm (2.0 - 3.7) AV Cusp: 2.3 cm (1.5 - 2.6) MV EXCURSION: 19.676 mm (> 18.000) MV EF SLOPE: 133 mm/s (70 - 150) EPSS: 0.6 cm MV E Tyrone: 0.52 m/s MV DecT: 276 ms MV A Tyrone: 0.46 m/s MV E/A Ratio: 1.12 RAP: 5.00 mmHg RVSP: 25.63 mmHg FINDINGS -------- Sinus rhythm. This was a technically adequate study. The left ventricular size is normal. There is borderline concentric left ventricular hypertrophy. Overall left ventricular systolic function is normal with, an EF between 60 - 65 %. The right ventricle is normal in size. The left atrial size is normal. The right atrium is normal in size. Interatrial and interventricular septum intact. The aortic valve is trileaflet and appears structurally normal. The mitral valve is normal. Mild tricuspid regurgitation present. Right ventricular systolic pressure is normal at < 35 mmHg. There is no pulmonic regurgitation present. The aortic root size is normal. Normal inferior vena cava with normal inspiratory collapse consistent with estimated right atrial pre ssure of 5 mmHg. There is no pericardial effusion. CONCLUSIONS -------- 1. The left ventricular size is normal. 2. There is borderline concentric left ventricular hypertrophy. 3. Overall left ventricular systolic function is normal with, an EF between 60 - 65 %. 4. Mild tricuspid regurgitation present. 5. There is no pericardial effusion. NURSE SANE: ALEXA Delgado
[2020-08-02 12:16] VITALS: BP 114/74; PULSE 75; RESP 18; TEMP 97.6
--- NOTE | 2020-08-02 16:11 | P.PN ---
Subjective Progress Note Date: 08/02/20 Patient was seen at bedside and he stated that he has not had any further episode of weakness or slurring the speech. He denies of any paresthesia. He feels he is back to baseline. MR the brain is done and is reported as chronic appearing periventricular white matter ischemic changes at. No suspicious acute ischemic changes. Objective - Vital Signs Vital signs: Vital Signs Temp 97.6 F 08/02/20 12:00 Pulse 75 08/02/20 12:00 Resp 18 08/02/20 12:00 BP 114/74 08/02/20 12:00 Pulse Ox 96 08/02/20 12:00 Intake & Output 08/01/20 08/02/20 08/02/20 18:59 06:59 18:59 Intake Total 720 680 Output Total 550 Balance 170 680 Weight 68.039 kg 75.3 kg Intake: Oral 720 680 Output: Urine 550 Other: Voiding Method Toilet Toilet # Voids 1 - Exam GENERAL: The patient is lying in bed and is not in acute distress. NEUROLOGICAL: Higher mental function: The patient is awake, alert, oriented to self, place and time. Patient is following commands. No aphasia and no neglect. Cranial nerves: The pupils are round, equal and reactive to light and accommodation. Visual locke are full to confrontation throughout. Extraocular movement is intact no nystagmus is noted. Facial sensation is normal to touch throughout. The facial strength is normal throughout. Hearing is normal bilaterally to hand rub. Tongue is midline and moved [id number] without any difficulty. No dysarthria is noted. Shoulder shrug is normal bilaterally. Motor: Gait is deferred. The strength is 5 over 5 throughout. Normal tone and bulk. Cerebellum: Normal finger to nose heel to chowdhury bilaterally. Sensation: Sensation is normal to touch throughout. Reflexes (right/left): 2+ throughout. Plantars are downgoing bilaterally. - Labs CBC & Chem 7: 08/02/20 06:50 08/02/20 06:50 Labs: Abnormal Lab Results - Last 24 Hours (Table) 08/02/20 Range/Units 06:50 Sodium 135 L (137-145) mmol/L Glucose 105 H (74-99) mg/dL Cholesterol 233 H (<200) mg/dL LDL Cholesterol, Calc 161 H (0-99) mg/dL Assessment and Plan Assessment: This is a 55-year-old gentleman that presented to emergency department on 08/01/2020 for pareshesia over the left upper extremity and difficulty getting words out with left arm weakness. His symptoms resolved. Transient ischemic attack (Episode of paresthesia over left upper extremity, with weakness and difficulty getting words out lasting couple hours). Unknow exact etiology, possibly small vessel disease. Dyslipidemia Chronic History of nicotine use (smokes 3/4 PPD t 1PPD >30 years) Plan: Continue on aspirin 81 mg and plavix 75mg for dual antiplateletes then discontinue Plavix after 21 days but continue ASA indefidently for secondary stroke prophyalxis. I started him on Lipitor 40 mg for secondary stroke prophylaxis and to continue indefinetly. MRI of the brain: Is reported as chronic appearing periventricular white matter ischemic changes at. No suspicious acute ischemic changes. 2-D echo: Was reported as borderline concentric left ventricular hypertrophy. Ejection fraction between 60 and 55%. Left atrial size is normal. Lipid panel: Triglyceride 136, cholesterol 233, LDL is 161 and HDL is 45. PT OT and FURNACE CHARGER are consulted. Continue every 4 neuro checks. Patient on the cardiac monitoring is to be continued. Patient was counseled on tobacco cessation. He was notified to follow up with a neurologist within 2-3 weeks as an outpatient. Patient is clear from a neurology perspective for discharge. Yuval Grace M.D. Neuro-hospitalist Time with Patient: Less than 30
--- NOTE | 2020-08-22 22:11 | P.DS ---
Providers Date of admission: 08/01/20 08:25 Expected date of discharge: 08/02/20 Attending physician: Michael Giordano MD Consults: 08/01/20 08:13 Consult Physician Urgent Consulting Provider: Yuval Grace Consult Reason/Comments: code stroke Do you want consulting provider notified?: Yes Primary care physician: Vilma Cruz [facility] Course: 55-year-old gentleman that presented to emergency department on 08/01/2020 for pareshesia over the left upper extremity and difficulty getting words out with left arm weakness. His symptoms resolved. Transient ischemic attack (Episode of paresthesia over left upper extremity, with weakness and difficulty getting words out lasting couple hours). Unknow exact etiology, possibly small vessel disease. Dyslipidemia Chronic History of nicotine use (smokes 3/4 PPD t 1PPD >30 years) Plan: Continue on aspirin 81 mg and plavix 75mg for dual antiplateletes then discontinue Plavix after 21 days but continue ASA indefidently for secondary stroke prophyalxis. I started him on Lipitor 40 mg for secondary stroke prophylaxis and to continue indefinetly. MRI of the brain: Is reported as chronic appearing periventricular white matter ischemic changes at. No suspicious acute ischemic changes. 2-D echo: Was reported as borderline concentric left ventricular hypertrophy. Ejection fraction between 60 and 55%. Left atrial size is normal. Lipid panel: Triglyceride 136, cholesterol 233, LDL is 161 and HDL is 45. PT OT and GUEST SERVICE HOST are consulted. Continue every 4 neuro checks. Patient on the cardiac monitoring is to be continued. Patient was counseled on tobacco cessation. He was notified to follow up with a neurologist within 2-3 weeks as an outpatient. Patient Condition at Discharge: Stable Plan - Discharge Summary Discharge Rx Participant: No New Discharge Prescriptions: New Aspirin 81 mg PO DAILY chew Atorvastatin [Lipitor] 40 mg PO HS #30 tab Clopidogrel [Plavix] 75 mg PO DAILY #21 tab Continue Albuterol Inhaler [Ventolin Hfa Inhaler] 1 - 2 puff INHALATION RT-Q4H PRN PRN Reason: Shortness Of Breath Fluticasone/Umeclidin/Vilanter [Trelegy Ellipta 100-62.5-25] 1 puff INHALATION RT-DAILY Discharge Medication List Albuterol Inhaler [Ventolin Hfa Inhaler] 1 - 2 puff INHALATION RT-Q4H PRN 08/01/20 [History] Fluticasone/Umeclidin/Vilanter [Trelegy Ellipta 100-62.5-25] 1 puff INHALATION RT-DAILY 08/01/20 [History] Aspirin 81 mg PO DAILY chew 08/02/20 [Rx] Atorvastatin [Lipitor] 40 mg PO HS #30 tab 08/02/20 [Rx] Clopidogrel [Plavix] 75 mg PO DAILY #21 tab 08/02/20 [Rx] Follow up Appointment(s)/Referral(s): Arturo Esparza MD [Primary Care Provider] - 1-2 days Jm Ham MD [Medical Doctor] - 2 Weeks Patient Instructions/Handouts: Transient Ischemic Attack (DC), How to Stop Smoking (DC), Cigarette Smoking and Your Health (GEN) Discharge/Stand Alone Forms: Work/School Release / Restrict Discharge Disposition: HOME SELF-CARE
== END 2020-08-02 15:26 | disposition home or self-care (01) ==
LOC: EC 06:34 → 3SCARD 08:25 → INTOOBSV 08:25 → 3SCARD 08:38 → UNDODISIN 08-02 15:26
PROVIDERS: ADMIT Internal Medicine; ATTEND Internal Medicine
DX: G45.9 Transient cerebral ischemic attack, unspecified (principal); J44.9 Chronic obstructive pulmonary disease, unspecified; I10 Essential (primary) hypertension; K21.9 Gastro-esophageal reflux disease without esophagitis; E78.5 Hyperlipidemia, unspecified; F17.210 Nicotine dependence, cigarettes, uncomplicated; G89.29 Other chronic pain; M25.552 Pain in left hip; M54.5 Low back pain; H43.393 Other vitreous opacities, bilateral; Z20.822 Contact with and (suspected) exposure to COVID-19; Z79.51 Long term (current) use of inhaled steroids; Z79.899 Other long term (current) drug therapy; Z88.5 Allergy status to narcotic agent; Z87.442 Personal history of urinary calculi; Z98.890 Other specified postprocedural states; Z87.820 Personal history of traumatic brain injury; Z82.49 Family history of ischemic heart disease and other diseases of the circulatory system; Z84.1 Family history of disorders of kidney and ureter; Z83.79 Family history of other diseases of the digestive system
CPT/HCPCS: 99285; 36415; 93005; 93306; 97162; 97165; 92523; 80061; 80053; 80048; 84484; 85025 ×2; 85610; 85730; 81001; 80306; 87635; 71045; 70496; 70450; 70498; 70551; G0378 ×2; S4990; Q9967; 99284

== ENCOUNTER → 2020-10-03 | Outpatient (CLI) | payer BC ==
[2020-10-03 16:52] LABS: African American GFR (CKD) >90 (>60 ml/min/1.73 sqM); Anion Gap 7 mmol/L; Blood Urea Nitrogen 12 mg/dL (9-20); Calcium 9.7 mg/dL (8.4-10.2); Carbon Dioxide 31 mmol/L (22-30); Chloride 102 mmol/L (98-107); Glucose 89 mg/dL (74-99); Non-African American GFR(CKD) >90 (>60 ml/min/1.73 sqM); Potassium 4.2 mmol/L (3.5-5.1); Sodium 140 mmol/L (137-145)
--- NOTE | 2020-10-04 07:53 | US ---
EXAMINATION TYPE: US kidneys/renal and bladder DATE OF EXAM: 10/03/2020 COMPARISON: CT CLINICAL HISTORY: N28.9, R31.9. Flank pain, h/o renal stones EXAM MEASUREMENTS: Right Kidney: 12.2 x 5.2 x 5.2 cm Left Kidney: 11.6 x 6.1 x 5.3 cm Pt very gassy, unable to hold breath, difficult to visualize kidneys Right Kidney: No evidence of hydro, multiple calculi scattered throughout kidney, largest imaged and measured at 8mm Left Kidney: No evidence of hydro, probable calculus mid= 7mm in size/ cyst upper pole= 1.9 cm Bladder: wnl Bilateral Jets seen: No There is no evidence for hydronephrosis at this point in time. No masses are identified. The urin foreign bladder is anechoic IMPRESSION: Bilateral nonobstructing nephrolithiasis.
--- NOTE | 2020-10-04 07:59 | US ---
EXAMINATION TYPE: US scrotum with doppler. Grayscale and color Doppler Duplex imaging performed of t favio scrotum. DATE OF EXAM: 10/03/2020 COMPARISON: NONE CLINICAL HISTORY: N50. Pain right testicle, h/o renal stones EXAM MEASUREMENTS: TESTICLES: Right Testicle: 4.0 x 2.3 x 3.0 cm Left Testicle: 3.4 x 2.2 x 2.7 cm EPIDIDYMIS HEAD: Right Epididymis: 0.9 cm Left Epididymis: 0.8 cm Doppler performed to assess for testicular vascularity; good bilateral color flow and waveforms are s een. There is no evidence of testicular torsion. Presence of hydroceles: No Presence of varicoceles: No Normal appearing testicles IMPRESSION: No distinct abnormality appreciated.
== END | disposition home or self-care (01) ==
LOC: RADUSWWP 15:38
PROVIDERS: ATTEND Internal Medicine
DX: N20.0 Calculus of kidney (principal)
CPT/HCPCS: 36415; 76770; 76870; 80048; 93975

== ENCOUNTER 2020-11-18 12:16 | Emergency (ER) | payer BC ==
[2020-11-18] MEDS ORDERED: SODIUM CHLORIDE 0.9% 1,000 ML IV STA (12:51)
[2020-11-18] MEDS ORDERED: ONDANSETRON 4 MG/2 ML VIAL IVP STA (12:51)
[2020-11-18] MEDS ORDERED: HYDROmorphone 1 MG/ML 1 ML SYRINGE IVP STA (12:52)
--- NOTE | 2020-11-18 13:01 | ED ---
General Adult HPI - General Chief complaint: Abdominal Pain Stated complaint: kidney stone Time Seen by Provider: 11/18/20 12:47 Source: patient, RN notes reviewed, old records reviewed Mode of arrival: ambulatory Limitations: no limitations - History of Present Illness Initial comments: 55-year-old male presenting with left flank pain, history of kidney stones. His pain is been severe over the past 24 hours. He's had some vomiting associated with this pain. No abdominal pain, this is entirely left flank pain. No hematuria or dysuria. No fever. - Related Data Home Medications Medication Instructions Recorded Confirmed Albuterol Inhaler [Ventolin Hfa 1 - 2 puff INHALATION RT-Q4H PRN 08/01/20 08/01/20 Inhaler] Fluticasone/Umeclidin/Vilanter 1 puff INHALATION RT-DAILY 08/01/20 08/01/20 [Trelegy Ellipta 100-62.5-25] Previous Rx's Medication Instructions Recorded Aspirin 81 mg PO DAILY chew 08/02/20 Atorvastatin [Lipitor] 40 mg PO HS #30 tab 08/02/20 Clopidogrel [Plavix] 75 mg PO DAILY #21 tab 08/02/20 HYDROcodone/APAP 5-325MG [[place] 1 tab PO Q6HR PRN #12 tab 11/18/20 5-325] Ibuprofen [Motrin] 600 mg PO Q8HR PRN #24 tab 11/18/20 Allergies Allergy/AdvReac Type Severity Reaction Status Date / Time codeine Allergy Anaphylaxis Verified 11/18/20 12:34 Review of Systems ROS Statement: Those systems with pertinent positive or pertinent negative responses have been documented in the HPI. ROS Other: All systems not noted in ROS Statement are negative. Past Medical History Past Medical History: COPD, Eye Disorder, GERD/Reflux Additional Past Medical History / Comment(s): Chronic SOB, nephrolithiasis/pt passed stones on his own, diarrhea/abdomina feels bloated, chronic L hip and low back pain, bilatateral eye "floaters", past concussion/arm fx after 32 foot fall History of Any Multi-Drug Resistant Organisms: None Reported Past Surgical History: Hernia Repair, Orthopedic Surgery Additional Past Surgical History / Comment(s): R thumb closed reduction/pinning, colonoscopy, L inguinal hernia repair. Past Anesthesia/Blood Transfusion Reactions: No Reported Reaction Past Psychological History: No Psychological Hx Reported Smoking Status: Current every day smoker Past Alcohol Use History: None Reported Past Drug Use History: None Reported - Past Family History Father Family Medical History: Coronary Artery Disease (CAD), Myocardial Infarction ([place]), Renal Disease Additional Family Medical History / Comment(s): Father is living. He had a [place] at the age of 78yrs. He is receiving renal dialysis. Mother Additional Family Medical History / Comment(s): Mother is . She had a colectomy/pt does not know reason and heart problems. General Exam Limitations: no limitations General appearance: alert, in no apparent distress Head exam: Present: atraumatic, normocephalic Eye exam: Present: normal appearance, PERRL ENT exam: Present: mucous membranes dry Neck exam: Present: normal inspection. Absent: tenderness, meningismus Respiratory exam: Present: normal lung sounds bilaterally. Absent: respiratory distress Cardiovascular Exam: Present: regular rate, normal rhythm GI/Abdominal exam: Present: soft. Absent: distended, tenderness, guarding Extremities exam: Present: normal inspection, normal capillary refill. Absent: pedal edema Back exam: Present: CVA tenderness (L) Neurological exam: Present: alert, oriented X3, CN II-XII intact. Absent: motor sensory deficit Psychiatric exam: Present: normal affect, normal mood Skin exam: Present: warm, dry, intact. Absent: cyanosis, diaphoretic Course Vital Signs 11/18/20 11/18/20 12:32 14:08 Temperature 98.3 F Pulse Rate 72 64 Respiratory 20 16 Rate Blood Pressure 149/93 157/87 O2 Sat by Pulse 98 96 Oximetry Medical Decision Making - Medical Decision Making 55-year-old male with left flank pain history of renal colic. Patient has CT showing to cortical lesions on the left measuring 1.5 cm recommending either MRI or ultrasound. There is no obstructing renal stones, there is bilateral renal stones without hydronephrosis or obstruction. Patient has trace blood in the urine, may have passed a stone. He's given close urology follow-up and pain control. Patient well-appearing stable for discharge. - Lab Data Result diagrams: 11/18/20 13:14 11/18/20 13:14 Lab Results 11/18/20 11/18/20 11/18/20 Range/Units 13:14 13:14 13:14 WBC 11.5 H (3.8-10.6) k/uL RBC 5.08 (4.30-5.90) m/uL Hgb 15.9 (13.0-17.5) gm/dL Hct 46.3 (39.0-53.0) % MCV 91.3 (80.0-100.0) fL MCH 31.4 (25.0-35.0) pg MCHC 34.4 (31.0-37.0) g/dL RDW 12.8 (11.5-15.5) % Plt Count 226 (150-450) k/uL MPV 7.0 Neutrophils % 75 % Lymphocytes % 18 % Monocytes % 5 % Eosinophils % 1 % Basophils % 1 % Neutrophils # 8.6 H (1.3-7.7) k/uL Lymphocytes # 2.0 (1.0-4.8) k/uL Monocytes # 0.6 (0-1.0) k/uL Eosinophils # 0.1 (0-0.7) k/uL Basophils # 0.1 (0-0.2) k/uL PT (9.0-12.0) sec INR (<1.2) APTT (22.0-30.0) sec Sodium 138 (137-145) mmol/L Potassium 4.3 (3.5-5.1) mmol/L Chloride 104 (98-107) mmol/L Carbon Dioxide 27 (22-30) mmol/L Anion Gap 7 mmol/L BUN 13 (9-20) mg/dL Creatinine 0.88 (0.66-1.25) mg/dL Est GFR (CKD-EPI)AfAm >90 (>60 ml/min/1.73 sqM) Est GFR (CKD-EPI)NonAf >90 (>60 ml/min/1.73 sqM) Glucose 121 H (74-99) mg/dL Plasma Lactic Acid Dominic (0.7-2.0) mmol/L Calcium 9.1 (8.4-10.2) mg/dL Total Bilirubin 0.4 (0.2-1.3) mg/dL AST 19 (17-59) U/L ALT 12 (4-49) U/L Alkaline Phosphatase 61 (38-126) U/L Total Protein 6.7 (6.3-8.2) g/dL Albumin 4.4 (3.5-5.0) g/dL Amylase 111 H (30-110) U/L Lipase 366 H (23-300) U/L Urine Color Yellow Urine Appearance Clear (Clear) Urine pH 5.5 (5.0-8.0) Ur Specific [place] 1.023 (1.001-1.035) Urine Protein Negative (Negative) Urine Glucose (UA) Negative (Negative) Urine Ketones Negative (Negative) Urine Blood Moderate H (Negative) Urine Nitrite Negative (Negative) Urine Bilirubin Negative (Negative) Urine Urobilinogen <2.0 (<2.0) mg/dL Ur Leukocyte Esterase Negative (Negative) Urine RBC 11 H (0-5) /hpf Urine WBC 1 (0-5) /hpf Urine Mucus Rare H (None) /hpf 11/18/20 11/18/20 Range/Units 13:14 13:14 WBC (3.8-10.6) k/uL RBC (4.30-5.90) m/uL Hgb (13.0-17.5) gm/dL Hct (39.0-53.0) % MCV (80.0-100.0) fL MCH (25.0-35.0) pg MCHC (31.0-37.0) g/dL RDW (11.5-15.5) % Plt Count (150-450) k/uL MPV Neutrophils % % Lymphocytes % % Monocytes % % Eosinophils % % Basophils % % Neutrophils # (1.3-7.7) k/uL Lymphocytes # (1.0-4.8) k/uL Monocytes # (0-1.0) k/uL Eosinophils # (0-0.7) k/uL Basophils # (0-0.2) k/uL PT 10.2 (9.0-12.0) sec INR 0.9 (<1.2) APTT 22.1 (22.0-30.0) sec Sodium (137-145) mmol/L Potassium (3.5-5.1) mmol/L Chloride (98-107) mmol/L Carbon Dioxide (22-30) mmol/L Anion Gap mmol/L BUN (9-20) mg/dL Creatinine (0.66-1.25) mg/dL Est GFR (CKD-EPI)AfAm (>60 ml/min/1.73 sqM) Est GFR (CKD-EPI)NonAf (>60 ml/min/1.73 sqM) Glucose (74-99) mg/dL Plasma Lactic Acid Dominic 1.3 (0.7-2.0) mmol/L Calcium (8.4-10.2) mg/dL Total Bilirubin (0.2-1.3) mg/dL AST (17-59) U/L ALT (4-49) U/L Alkaline Phosphatase (38-126) U/L Total Protein (6.3-8.2) g/dL Albumin (3.5-5.0) g/dL Amylase (30-110) U/L Lipase (23-300) U/L Urine Color Urine Appearance (Clear) Urine pH (5.0-8.0) Ur Specific [place] (1.001-1.035) Urine Protein (Negative) Urine Glucose (UA) (Negative) Urine Ketones (Negative) Urine Blood (Negative) Urine Nitrite (Negative) Urine Bilirubin (Negative) Urine Urobilinogen (<2.0) mg/dL Ur Leukocyte Esterase (Negative) Urine RBC (0-5) /hpf Urine WBC (0-5) /hpf Urine Mucus (None) /hpf Disposition Clinical Impression: Flank pain, Kidney lesion Disposition: HOME SELF-CARE Condition: Fair Instructions (If sedation given, give patient instructions): Flank Pain (ED) Additional Instructions: Please follow up with urology regarding kidney lesion Prescriptions: Ibuprofen [Motrin] 600 mg PO Q8HR PRN #24 tab PRN Reason: Pain HYDROcodone/APAP 5-325MG [[place] 5-325] 1 tab PO Q6HR PRN #12 tab PRN Reason: Pain Is patient prescribed a controlled substance at d/c from ED?: No Referrals: Arturo Esparza MD [Primary Care Provider] - 1-2 days Bon Tsai MD [STAFF PHYSICIAN] - 1-2 days Time of Disposition: 14:45
[2020-11-18 13:25] LABS: Basophils # (A) 0.1 k/uL (0-0.2); Basophils % (A) 1 %; Eosinophils # (A) 0.1 k/uL (0-0.7); Eosinophils % (A) 1 %; HCT 46.3 % (39.0-53.0); HGB 15.9 gm/dL (13.0-17.5); Lymphocytes % (A) 18 %; MCH 31.4 pg (25.0-35.0); MCHC 34.4 g/dL (31.0-37.0); MCV 91.3 fL (80.0-100.0); Monocytes # (A) 0.6 k/uL (0-1.0); Monocytes % (A) 5 %; Neutrophils # (A) 8.6 k/uL (1.3-7.7); Neutrophils % (A) 75 %; Platelet Count 226 k/uL (150-450); RBC 5.08 m/uL (4.30-5.90); RDW 12.8 % (11.5-15.5); WBC 11.5 k/uL (3.8-10.6)
[2020-11-18 13:37] LABS: Appearance,Urine Clear (Clear); Bilirubin,Urine Negative (Negative); Blood,Urine Moderate (Negative); Color,Urine Yellow; Glucose,Urine (UA) Negative (Negative); Ketones,Urine Negative (Negative); Leukocyte Esterase,Urine Negative (Negative); Mucus,Urine Rare /hpf; Nitrite,Urine Negative (Negative); PH, Urine 5.5 (5.0-8.0); Protein,Urine Negative (Negative); RBC,Urine 11 /hpf (0-5); Specific Gravity,Urine 1.023 (1.001-1.035); Urobilinogen,Urine <2.0 mg/dL (<2.0); WBC,Urine 1 /hpf (0-5)
[2020-11-18 13:38] LABS: INR 0.9 (<1.2); Partial Thromboplastin Time 22.1 sec (22.0-30.0); Prothrombin Time 10.2 sec (9.0-12.0)
[2020-11-18 13:47] LABS: ALT 12 U/L (4-49); AST 19 U/L (17-59); African American GFR (CKD) >90 (>60 ml/min/1.73 sqM); Albumin 4.4 g/dL (3.5-5.0); Alkaline Phosphatase 61 U/L (38-126); Amylase 111 U/L (30-110); Anion Gap 7 mmol/L; Blood Urea Nitrogen 13 mg/dL (9-20); Calcium 9.1 mg/dL (8.4-10.2); Carbon Dioxide 27 mmol/L (22-30); Chloride 104 mmol/L (98-107); Glucose 121 mg/dL (74-99); Lipase 366 U/L (23-300); Non-African American GFR(CKD) >90 (>60 ml/min/1.73 sqM); Potassium 4.3 mmol/L (3.5-5.1); Sodium 138 mmol/L (137-145); Total Bilirubin 0.4 mg/dL (0.2-1.3); Total Protein 6.7 g/dL (6.3-8.2)
--- NOTE | 2020-11-18 14:01 | XR ---
EXAM: Abdomen radiograph. HISTORY: Pain. TECHNIQUE: Upright AP view. COMPARISON: None available. FINDINGS: There are nondilated bowel loops with a nonobstructive pattern. No free air. There are no pathologic calcifications. No acute osseous abnormality seen. IMPRESSION: No acute process.
[2020-11-18 14:14] VITALS: RESP 16
--- NOTE | 2020-11-18 14:16 | CT ---
EXAMINATION TYPE: CT abdomen pelvis wo con DATE OF EXAM: 11/18/2020 COMPARISON: Same-day radiograph. HISTORY: left flank pain CT DLP: 505 mGycm Automated exposure control for dose reduction was used. TECHNIQUE: Helical acquisition of images was performed from the lung bases through the pelvis. FINDINGS: LUNG BASES: No significant abnormality is appreciated. LIVER/GB: No significant abnormality is appreciated. PANCREAS: No significant abnormality is seen. SPLEEN: No significant abnormality is seen. ADRENALS: No significant abnormality is seen. KIDNEYS: No bilateral hydronephrosis. Multiple bilateral nonobstructing renal calculi measuring up to 3 mm. A 1.6 cm fat-containing left renal cortical lesion in the upper pole, consistent with angiomyo lipoma. Also 1.5 cm isoattenuating left renal lesion in the upper pole and additional smaller similar lesion in the midpole. FREE AIR: No free air is visualized RETROPERITONEAL ADENOPATHY: None visualized REPRODUCTIVE ORGANS: No significant abnormality is seen URINARY BLADDER: No significant abnormality is seen. PELVIC ADENOPATHY: None visualized. OSSEOUS STRUCTURES: No significant abnormality is seen. BOWEL: No significant abnormality is seen. Normal appendix. OTHER: None. IMPRESSION: INDETERMINATE 2 LEFT RENAL CORTICAL LESIONS MEASURING UP TO 1.5 CM. CONSIDER FURTHER CHARACTERIZATION WITH ULTRASOUND OR MRI. Otherwise no acute abnormality or evidence of obstructive uropathy. Nonobstructing bilateral renal calculi. Incidental left renal angiomyolipoma.
[2020-11-18 14:55] VITALS: BP 145/90; PULSE 63; TEMP 98.2
== END 2020-11-18 14:35 | disposition home or self-care (01) ==
LOC: EC 12:16
DX: N28.9 Disorder of kidney and ureter, unspecified (principal); J44.9 Chronic obstructive pulmonary disease, unspecified; K21.9 Gastro-esophageal reflux disease without esophagitis; F17.200 Nicotine dependence, unspecified, uncomplicated; Z87.442 Personal history of urinary calculi; Z79.82 Long term (current) use of aspirin; Z79.02 Long term (current) use of antithrombotics/antiplatelets; Z79.1 Long term (current) use of non-steroidal anti-inflammatories (NSAID); Z79.51 Long term (current) use of inhaled steroids
CPT/HCPCS: 36415; 80053; 82150; 83605; 83690; 85025; 85610; 85730; 81001; 74018; 74176; 99284; 96374; 96375; 96361; J2405; J1170

== ENCOUNTER 2020-11-29 10:17 | Emergency (ER) | payer BC ==
[2020-11-29 10:22] VITALS: RESP 18
[2020-11-29] MEDS ORDERED: SODIUM CHLORIDE 0.9% 1,000 ML IV STA (10:28)
[2020-11-29] MEDS ORDERED: HYDROmorphone 1 MG/ML 1 ML SYRINGE IVP STA (10:29)
[2020-11-29 11:00] LABS: Basophils # (A) 0.1 k/uL (0-0.2); Basophils % (A) 1 %; Eosinophils # (A) 0.2 k/uL (0-0.7); Eosinophils % (A) 2 %; HCT 41.8 % (39.0-53.0); HGB 14.5 gm/dL (13.0-17.5); Lymphocytes % (A) 26 %; MCH 31.6 pg (25.0-35.0); MCHC 34.8 g/dL (31.0-37.0); MCV 90.8 fL (80.0-100.0); Mean Platelet Volume 6.9; Monocytes # (A) 0.5 k/uL (0-1.0); Monocytes % (A) 6 %; Neutrophils # (A) 4.8 k/uL (1.3-7.7); Neutrophils % (A) 63 %; Platelet Count 213 k/uL (150-450); RBC 4.61 m/uL (4.30-5.90); RDW 12.8 % (11.5-15.5); WBC 7.6 k/uL (3.8-10.6)
[2020-11-29 11:13] LABS: ALT 15 U/L (4-49); AST 22 U/L (17-59); African American GFR (CKD) >90 (>60 ml/min/1.73 sqM); Alkaline Phosphatase 56 U/L (38-126); Anion Gap 4 mmol/L; Blood Urea Nitrogen 17 mg/dL (9-20); Calcium 9.3 mg/dL (8.4-10.2); Carbon Dioxide 27 mmol/L (22-30); Chloride 107 mmol/L (98-107); Glucose 109 mg/dL (74-99); Lipase 91 U/L (23-300); Non-African American GFR(CKD) >90 (>60 ml/min/1.73 sqM); Potassium 4.5 mmol/L (3.5-5.1); Sodium 138 mmol/L (137-145); Total Bilirubin 0.4 mg/dL (0.2-1.3); Total Protein 6.3 g/dL (6.3-8.2)
--- NOTE | 2020-11-29 11:50 | US ---
EXAMINATION TYPE: US kidneys/renal and bladder DATE OF EXAM: 11/29/2020 COMPARISON: NONE CLINICAL HISTORY: left flank pain, . Left side pain EXAM MEASUREMENTS: Right Kidney: 11.1 x 5.7 x 5.5 cm Left Kidney: 11.3 x 4.5 x 6.2 cm Right Kidney: Lateral lower cystic appearing lesion = 1.5 x 1.4 x 1.4 cm. Right renal calculus measu ring up to 6 mm. Left Kidney: echogenic circular lesion at interpolar left kidney = 0.7 x 0.7 cm. This may represent a hemorrhagic cyst but is nonspecific. Possible upper pole echogenic lesion = 1.6 x 1.1 x 1.5 cm. Thi s may represent an angiomyolipoma. A CT or MRI using renal protocol is recommended to exclude underly ing renal cell carcinoma. Medial cystic lesion = 2.0 x 1.3 x 1.7 cm. Multiple echogenic foci seen, largest = 0.7 cm. These are most suggestive of left renal calculi. Urinary bladder : mildly distended, anechoic Bilateral ureteral Jets not seen IMPRESSION: 1. Left kidney: Echogenic structure at the interpolar region measuring 7 mm is nonspecific. This may represent a hemorrhagic cyst but underlying renal cell carcinoma is not excluded. In addition there i s a 1.6 cm possible echogenic lesion at the upper pole of the left kidney which may represent an anti viral,. A CT or MRI using renal protocol is recommended for further evaluation. 2. 2 cm left renal cyst. 3. Bilateral renal calculi without evidence of hydronephrosis. 4. 1.5 cm cyst of the right kidney. No hydronephrosis.
[2020-11-29 12:00] LABS: Appearance,Urine Cloudy (Clear); Bilirubin,Urine Negative (Negative); Blood,Urine Large (Negative); Color,Urine Yellow; Glucose,Urine (UA) Negative (Negative); Ketones,Urine Negative (Negative); Leukocyte Esterase,Urine Trace (Negative); Mucus,Urine Rare /hpf; Nitrite,Urine Negative (Negative); Protein,Urine 1+ (Negative); RBC,Urine >182 /hpf (0-5); Specific Gravity,Urine 1.029 (1.001-1.035); Urobilinogen,Urine <2.0 mg/dL (<2.0); WBC,Urine 7 /hpf (0-5)
--- NOTE | 2020-11-29 12:08 | ED ---
Back Pain HPI - General Chief Complaint: Back Pain/Injury Stated Complaint: Kidney pain Time Seen by Provider: 11/29/20 10:24 Source: patient, RN notes reviewed Limitations: no limitations - History of Present Illness Initial Comments: Patient is a 55-year-old male that presents to the emergency department complaining of left flank pain that radiates towards the abdomen. He notes that he was recently seen on the for the same issue was diagnosed with kidney stones given conservative pain management and discharged home. On CT there were several echogenic areas in the left kidney. Patient was told to follow-up with primary care. Patient returns today with increasing pain. He was pacing around the room stating that the pain was 10 out of 10 and that his back was swollen. Patient states that he was given Motrin by his primary care but it wasn't touch in the pains became the emergency room. Patient was informed that he was recently diagnosed with kidney stones. Patient denied any other issues or complaints at this time. He notes that he did have some hematuria last time he went to the bathroom. Patient denied any aggravating or alleviating factors for his back pain. He denied any chest pain shortness of breath headache nausea vomiting diarrhea constipation fever fatigue chills. - Related Data Home Medications Medication Instructions Recorded Confirmed Albuterol Inhaler [Ventolin Hfa 1 - 2 puff INHALATION RT-Q4H PRN 08/01/20 08/01/20 Inhaler] Fluticasone/Umeclidin/Vilan[place] 1 puff INHALATION RT-DAILY 08/01/20 08/01/20 [Trelegy Ellipta 100-62.5-25] Previous Rx's Medication Instructions Recorded Aspirin 81 mg PO DAILY chew 08/02/20 Atorvastatin [Lipitor] 40 mg PO HS #30 tab 08/02/20 Clopidogrel [Plavix] 75 mg PO DAILY #21 tab 08/02/20 HYDROcodone/APAP 5-325MG [[place] 1 tab PO Q6HR PRN #12 tab 11/18/20 5-325] Ibuprofen [Motrin] 600 mg PO Q8HR PRN #24 tab 11/18/20 Allergies Allergy/AdvReac Type Severity Reaction Status Date / Time codeine Allergy Anaphylaxis Verified 11/29/20 10:19 Review of Systems ROS Statement: Those systems with pertinent positive or pertinent negative responses have been documented in the HPI. ROS Other: All systems not noted in ROS Statement are negative. Past Medical History Past Medical History: COPD, Eye Disorder, GERD/Reflux Additional Past Medical History / Comment(s): Chronic SOB, nephrolithiasis/pt passed stones on his own, diarrhea/abdomina feels bloated, chronic L hip and low back pain, bilatateral eye "floaters", past concussion/arm fx after 32 foot fall History of Any Multi-Drug Resistant Organisms: None Reported Past Surgical History: Hernia Repair, Orthopedic Surgery Additional Past Surgical History / Comment(s): R thumb closed reduction/pinning, colonoscopy, L inguinal hernia repair. Past Anesthesia/Blood Transfusion Reactions: No Reported Reaction Past Psychological History: No Psychological Hx Reported Smoking Status: Current every day smoker Past Alcohol Use History: Occasional Past Drug Use History: None Reported - Past Family History Father Family Medical History: Coronary Artery Disease (CAD), Myocardial Infarction ([place]), Renal Disease Additional Family Medical History / Comment(s): Father is living. He had a [place] at the age of 78yrs. He is receiving renal dialysis. Mother Additional Family Medical History / Comment(s): Mother is . She had a colectomy/pt does not know reason and heart problems. General Exam Limitations: no limitations General appearance: alert, in no apparent distress, in distress (From pain) Head exam: Present: atraumatic, normocephalic, normal inspection Eye exam: Present: normal appearance, PERRL, EOMI. Absent: scleral icterus, conjunctival injection, periorbital swelling Neck exam: Present: normal inspection Respiratory exam: Present: normal lung sounds bilaterally. Absent: respiratory distress, wheezes, rales, rhonchi, stridor Cardiovascular Exam: Present: regular rate, normal rhythm, normal heart sounds. Absent: systolic murmur, diastolic murmur, rubs, gallop, clicks GI/Abdominal exam: Present: soft, normal bowel sounds. Absent: distended, tenderness, guarding, rebound, rigid Extremities exam: Present: normal inspection, full ROM, normal capillary refill. Absent: tenderness, pedal edema, joint swelling, calf tenderness Back exam: Present: normal inspection, full ROM, CVA tenderness (L) Neurological exam: Present: alert, oriented X3 Psychiatric exam: Present: normal affect, normal mood Skin exam: Present: warm, dry, intact, normal color. Absent: rash Course Vital Signs 11/29/20 10:19 Temperature 98.2 F Pulse Rate 70 Respiratory 18 Rate Blood Pressure 154/66 O2 Sat by Pulse 95 Oximetry Medical Decision Making - Medical Decision Making 55-year-old male complaining of left flank pain recently diagnosed with kidney stones in several renal areas of suspicion. Labs, ultrasound of the kidney and ureter and bladder, 1 L normal saline, 1 mg of Dilaudid ordered. Labs unremarkable. Urinalysis shows large amount red blood cells which is to be expected with kidney stones. Case discussed with Dr. Almazan, patient discharge home with close follow-up to urology in the next day or 2. - Lab Data Result diagrams: 11/29/20 10:49 11/29/20 10:49 Lab Results 11/29/20 11/29/20 11/29/20 Range/Units 10:49 10:49 10:49 WBC 7.6 (3.8-10.6) k/uL RBC 4.61 (4.30-5.90) m/uL Hgb 14.5 (13.0-17.5) gm/dL Hct 41.8 (39.0-53.0) % MCV 90.8 (80.0-100.0) fL MCH 31.6 (25.0-35.0) pg MCHC 34.8 (31.0-37.0) g/dL RDW 12.8 (11.5-15.5) % Plt Count 213 (150-450) k/uL MPV 6.9 Neutrophils % 63 % Lymphocytes % 26 % Monocytes % 6 % Eosinophils % 2 % Basophils % 1 % Neutrophils # 4.8 (1.3-7.7) k/uL Lymphocytes # 2.0 (1.0-4.8) k/uL Monocytes # 0.5 (0-1.0) k/uL Eosinophils # 0.2 (0-0.7) k/uL Basophils # 0.1 (0-0.2) k/uL Sodium 138 (137-145) mmol/L Potassium 4.5 (3.5-5.1) mmol/L Chloride 107 (98-107) mmol/L Carbon Dioxide 27 (22-30) mmol/L Anion Gap 4 mmol/L BUN 17 (9-20) mg/dL Creatinine 0.83 (0.66-1.25) mg/dL Est GFR (CKD-EPI)AfAm >90 (>60 ml/min/1.73 sqM) Est GFR (CKD-EPI)NonAf >90 (>60 ml/min/1.73 sqM) Glucose 109 H (74-99) mg/dL Plasma Lactic Acid Dominic (0.7-2.0) mmol/L Calcium 9.3 (8.4-10.2) mg/dL Total Bilirubin 0.4 (0.2-1.3) mg/dL AST 22 (17-59) U/L ALT 15 (4-49) U/L Alkaline Phosphatase 56 (38-126) U/L Total Protein 6.3 (6.3-8.2) g/dL Albumin 4.0 (3.5-5.0) g/dL Lipase 91 (23-300) U/L Urine Color Yellow Urine Appearance Cloudy (Clear) Urine pH 6.0 (5.0-8.0) Ur Specific [place] 1.029 (1.001-1.035) Urine Protein 1+ H (Negative) Urine Glucose (UA) Negative (Negative) Urine Ketones Negative (Negative) Urine Blood Large H (Negative) Urine Nitrite Negative (Negative) Urine Bilirubin Negative (Negative) Urine Urobilinogen <2.0 (<2.0) mg/dL Ur Leukocyte Esterase Trace H (Negative) Urine RBC >182 H (0-5) /hpf Urine WBC 7 H (0-5) /hpf Urine Mucus Rare H (None) /hpf 11/29/20 Range/Units 10:49 WBC (3.8-10.6) k/uL RBC (4.30-5.90) m/uL Hgb (13.0-17.5) gm/dL Hct (39.0-53.0) % MCV (80.0-100.0) fL MCH (25.0-35.0) pg MCHC (31.0-37.0) g/dL RDW (11.5-15.5) % Plt Count (150-450) k/uL MPV Neutrophils % % Lymphocytes % % Monocytes % % Eosinophils % % Basophils % % Neutrophils # (1.3-7.7) k/uL Lymphocytes # (1.0-4.8) k/uL Monocytes # (0-1.0) k/uL Eosinophils # (0-0.7) k/uL Basophils # (0-0.2) k/uL Sodium (137-145) mmol/L Potassium (3.5-5.1) mmol/L Chloride (98-107) mmol/L Carbon Dioxide (22-30) mmol/L Anion Gap mmol/L BUN (9-20) mg/dL Creatinine (0.66-1.25) mg/dL Est GFR (CKD-EPI)AfAm (>60 ml/min/1.73 sqM) Est GFR (CKD-EPI)NonAf (>60 ml/min/1.73 sqM) Glucose (74-99) mg/dL Plasma Lactic Acid Dominic 0.7 (0.7-2.0) mmol/L Calcium (8.4-10.2) mg/dL Total Bilirubin (0.2-1.3) mg/dL AST (17-59) U/L ALT (4-49) U/L Alkaline Phosphatase (38-126) U/L Total Protein (6.3-8.2) g/dL Albumin (3.5-5.0) g/dL Lipase (23-300) U/L Urine Color Urine Appearance (Clear) Urine pH (5.0-8.0) Ur Specific [place] (1.001-1.035) Urine Protein (Negative) Urine Glucose (UA) (Negative) Urine Ketones (Negative) Urine Blood (Negative) Urine Nitrite (Negative) Urine Bilirubin (Negative) Urine Urobilinogen (<2.0) mg/dL Ur Leukocyte Esterase (Negative) Urine RBC (0-5) /hpf Urine WBC (0-5) /hpf Urine Mucus (None) /hpf - Radiology Data Radiology results: report reviewed, image reviewed Left kidney: Echogenic structure at the interpolar region measuring 7 mm is nonspecific. This may represent hemorrhagic cyst underlying renal cell car cinoma was not excluded. In addition there is a 1.6 cm possible echogenic lesion at the upper pole of the left kidney which may represent an antiviral. A CT or MRI using renal protocol is recommended for further evaluation. 2 cm left renal cyst. Bilateral renal calculi without evidence of hydronephrosis. 1.5 cm cyst of the right kidney. No hydronephrosis. Disposition Clinical Impression: Kidney lesion, Flank pain Disposition: HOME SELF-CARE Condition: Stable Instructions (If sedation given, give patient instructions): Acute Low Back Pain (ED) Additional Instructions: Please return to the Emergency Department if symptoms worsen or any other concerns. It is very important he follow-up with urology in the next 1-2 days to get a further evaluation of the suspicious kidney lesions. Increase oral fluids. Take Tylenol and Motrin as needed for pain control. Is patient prescribed a controlled substance at d/c from ED?: No Referrals: Arturo Esparza MD [Primary Care Provider] - 1-2 days Jose Go MD [STAFF PHYSICIAN] - 1-2 days Time of Disposition: 12:17
[2020-11-29 12:30] VITALS: BP 128/78; PULSE 59; TEMP 97.8
== END 2020-11-29 12:30 | disposition home or self-care (01) ==
LOC: EC 10:17
DX: N28.9 Disorder of kidney and ureter, unspecified (principal); N28.1 Cyst of kidney, acquired; N20.0 Calculus of kidney; J44.9 Chronic obstructive pulmonary disease, unspecified; K21.9 Gastro-esophageal reflux disease without esophagitis; F17.200 Nicotine dependence, unspecified, uncomplicated; Z79.1 Long term (current) use of non-steroidal anti-inflammatories (NSAID); Z79.891 Long term (current) use of opiate analgesic; Z79.82 Long term (current) use of aspirin; Z79.51 Long term (current) use of inhaled steroids; Z79.899 Other long term (current) drug therapy
CPT/HCPCS: 36415; 80053; 83605; 83690; 85025; 81001; 76770; 96374; 96361; 99284; J1170

== ENCOUNTER → 2020-12-04 | Outpatient (CLI) | payer BC | END | disposition home or self-care (01) | CPT/HCPCS: 74178; 74400; Q9967 ==

== ENCOUNTER 2021-01-08 08:45 | Day surgery (SDC) | payer BC ==
[2021-01-03 16:11] VITALS: BMI 23.0
[~2021-01-08 08:45] MED LIST: DEXAMETHASONE SOD PHOSPHATE 4 MG/ML 1 ML VIAL IV ONE; LACTATED RINGERS 1,000 ML IV SCH; LIDOCAINE 1% (10MG/ML) FOR IV START INTRADERMA PRN; MIDAZOLAM 2 MG/2 ML VIAL IV PRN; ONDANSETRON 4 MG/2 ML VIAL IVP ONE
--- NOTE | 2021-01-08 09:14 | XR ---
EXAMINATION TYPE: XR KUB DATE OF EXAM: 01/08/2021 COMPARISON: 11/18/2020 INDICATION: Preop kidney stone TECHNIQUE: Single view abdomen supine view FINDINGS: There is nonspecific bowel gas pattern with air within small bowel loops as well as colon. No dilated loops of bowel are evident. No mass effect is evident. Psoas margins are normal. No organomegaly is present. Clinical of faint calcifications are in the periphery of the right kidney measuring approximately 0.2 cm. Distal ureteral stones are not identified. IMPRESSION: 1. Couple of faint calcifications within the mid right kidney. 2. Nonspecific bowel gas pattern
--- NOTE | 2021-01-08 09:35 | P.HPIHPCON ---
History of Present Illness H&P Date: 01/08/21 Chief Complaint: Bilateral kidney stones This is a 65-year-old male with history of a 4 mm left-sided distal ureteral stone, bilateral renal stones. He symptomatic from his ureteral stone. Option of ureteroscopy was discussed with him, discussed with him the risk of bleed ing, infection, injury to the ureter. Of note he wants to address his renal stones on the right side of the same setting. Discussed with him we'll attempt to a bilateral ureteroscopy, with holmium laser lithotripsy, stone basketing and stent insertion Consent for Procedure: I have explained the operation/procedure to the patient, including the risks, benefits, side effects, alternative therapies (including not receiving the proposed treatment or service), the likelihood of the patient achieving his/her goals, and potential recuperation problems for the procedure/sedation/analgesia, as well as any blood products, if indicated. I also explained to the patient the risks, benefits and side effects of the alternatives, as well as the risks related to not receiving the proposed procedure, care, treatment, or services. - Constitutional Constitutional: Denies chills, Denies fever - Cardiovascular Cardiovascular: Denies chest pain, Denies shortness of breath - Respiratory Respiratory: Denies cough, Denies 7 Past Medical History Past Medical History: Cancer, COPD, Eye Disorder, GERD/Reflux Additional Past Medical History / Comment(s): Chronic SOB, nephrolithiasis/pt pa ssed stones on his own, diarrhea/abdominal feels bloated, chronic L hip and low back pain, bilateral eye "floaters", past concussion/arm fx after 32 foot fall, recent dx bladder cancer per pt History of Any Multi-Drug Resistant Organisms: None Reported Past Surgical History: Hernia Repair, Orthopedic Surgery Additional Past Surgical History / Comment(s): R thumb closed reduction/pinning, colonoscopy, L inguinal hernia repair. Past Anesthesia/Blood Transfusion Reactions: No Reported Reaction Smoking Status: Current every day smoker - Past Family History Father Family Medical History: Coronary Artery Disease (CAD), Myocardial Infarction ([place]), Renal Disease Additional Family Medical History / Comment(s): Father is living. He had a [place] at the age of 78yrs. He is receiving renal dialysis. Mother Additional Family Medical History / Comment(s): Mother is . She had a colectomy/pt does not know reason and heart problems. Medications and Allergies Home Medications Medication Instructions Recorded Confirmed Type Albuterol Inhaler [Ventolin Hfa 1 - 2 puff INHALATION RT-Q4H PRN 08/01/20 01/08/21 History Inhaler] Fluticasone/Umeclidin/Vilanter 1 puff INHALATION RT-DAILY PRN 08/01/20 01/08/21 History [Trelegy Ellipta 100-62.5-25] Aspirin/Calcium Carbonate/Mag 325 mg PO DAILY PRN 11/29/20 01/08/21 History [Bufferin 325 mg Tablet] Allergies Allergy/AdvReac Type Severity Reaction Status Date / Time codeine AdvReac Nausea & Verified 01/08/21 09:17 Vomiting Surgical - Exam Vital Signs Temp Pulse Resp BP Pulse Ox 97.0 F L 61 16 152/85 96 01/08/21 09:19 01/08/21 09:19 01/08/21 09:19 01/08/21 09:19 01/08/21 09:19 - General well developed, well nourished, no distress, moderate pain - Eyes PERRL, normal ocular movement - ENT normal nares, normal mucosa - Respiratory normal expansion, normal respiratory effort - Abdomen Abdomen: soft, non tender - Psychiatric oriented to time, oriented to person, oriented to place Assessment and Plan Assessment: 55 yo male with history of bilateral renal stones, and left ureteral stone
[2021-01-08] MEDS ORDERED: LIDOCAINE 1% INJ 10MG/ML (20 ML MDV) ONE (11:29)
[2021-01-08] MEDS ORDERED: PROPOFOL 10 MG/ML 20 ML VIAL IV ONE (11:29)
[2021-01-08] MEDS ORDERED: SUCCINYLCHOLINE CHLORIDE 100 MG/5 ML SYR IV ONE (11:29)
[2021-01-08] MEDS ORDERED: MIDAZOLAM 2 MG/2 ML VIAL ONE (11:29)
[2021-01-08] MEDS ORDERED: fentaNYL (PF) 50 MCG/ML 2 ML AMP ONE (11:29)
[2021-01-08] MEDS ORDERED: IOHEXOL 350 MG/ML 50 ML in EMPTY BAG 1 BAG IRRIGATION ONE (11:57)
[2021-01-08] MEDS ORDERED: LACTATED RINGERS 1,000 ML IV ONE (12:30)
--- NOTE | 2021-01-08 13:00 | P.OP ---
Date of Procedure: 01/08/21 Preoperative Diagnosis: Bilateral renal stones, left ureteral stone Postoperative Diagnosis: bilateral renal stones Procedure(s) Performed: Cystoscopy, bilateral ureteroscopy, holmium laser lithotripsy, stone basketing, right stent insertion and a retrograde pyelogram Implants: 6-Djib[place]ian by 26 cm stent left on a string in the right ureter Anesthesia: SHARYN Surgeon: Bon Tsai Estimated Blood Loss (ml): 5 Pathology: other (Bilateral renal stones) Condition: stable Disposition: PACU Indications for Procedure: This is a 65-year-old male with history of a 4 mm left-sided distal ureteral stone, bilateral renal stones. He symptomatic from his ureteral stone. Option of ureteroscopy was discussed with him, discussed with him the risk of bleeding, infection, injury to the ureter. Of note he wants to address his renal stones on the right side of the same setting. Discussed with him we'll attempt to a bilateral ureteroscopy, with holmium laser lithotripsy, stone basketing and stent insertion Operative Findings: Multiple bilateral renal stones throughout the kidney Description of Procedure: Patient was brought to the operating room, general anesthesia was induced. He was prepped and draped in sterile fashion a placed in dorsal lithotomy position. Cystoscopy fitted with 21-[place]jiboutian sheath was inserted per urethra, of note he had a bulbar stricture but I was able to advance the scope past the stricture. Next attention was given carried to the left ureteral orifice was intubated with a sensor wire. The wire was advanced to the kidney under fluoroscopy. Next the cystoscope was withdrawn and a semirigid ureteroscope was inserted, and was advanced up the left ureteral orifice, the scope was advanced all the way up to the UPJ, there was no evidence of any ureteral stones. Pullback ureteroscopy was performed which showed no injury to the ureter or any evidence of ureteral stone. As the ureteroscope was withdrawn and a wire was advanced through. Next a 1113 [place] access sheath was passed over the wire under fluoroscopy into the proximal ureter. Next a flexible ureteroscope was inserted through the access sheath, renoscopy was performed showed significant amount of stones throughout the calyces. The stones were dusted using the holmium laser, sizable fragments were removed using the stone basket. Repeat renoscopy showed no evidence of any sizable stone or injury to the kidney. Pullback ureteroscopy was performed showed no injury to the kidney or any ureteral stone, there was no ureteral edema, thus a stent was not placed. At this time the cystoscope was reinserted, and attention was carried to the right ureteral orifice which was intubated with an open-ended catheter, retrograde pyelogram was performed which showed no filling defect along the course of the ureter. Next a sensor wire was advanced through the catheter the catheter was withdrawn with the wire in place. Next a 11-13 Fr ureteral access sheath was passed over the wire under fluoroscopy into the proximal ureter. Next a flexible ureteroscope was inserted through the access sheath, renoscopy was performed showed significant stones throughout the calyces. Using the holmium laser the stones were dusted using using the laser. Sizable fragments were removed using the stone basket. Repeat renoscopy showed no sizable fragments or injury to the kidney. Pullback ureteroscopy was perf ormed showed no injury to the ureter or any ureteral stone. A sensor wire was advanced through the ureteroscope a the ureteroscope was withdrawn. Next a ureteral stent was passed over the wire, the proximal curl was visualized on fluoroscopy and the distal curl was visualized using the cystoscope. The stent was left on a string and taped the patient penis. The bladder was emptied at the end of the case. Patient tolerated procedure well was taken to PACU in stable condition
[2021-01-08 13:21] VITALS: TEMP 97.7
[2021-01-08] MEDS ORDERED: ONDANSETRON 4 MG/2 ML VIAL ONE (13:28)
[2021-01-08] MEDS: HYDROmorphone 0.5 MG/0.5 ML SYRINGE IVP PRN ×4 (13:28→14:15)
[2021-01-08] MEDS ORDERED: ONDANSETRON 4 MG/2 ML VIAL IVP ONE (13:33)
--- NOTE | 2021-01-08 13:40 | FL ---
Fluoroscopy INDICATION: Pain FINDINGS: Fluoroscopy time: 1 minute 9 seconds. Images obtained: 4. IMPRESSIONS: 1. Documentation of fluoroscopy.
[2021-01-08] MEDS ORDERED: diphenhydrAMINE 50 MG/ML 1 ML VIAL ONE (13:50)
[2021-01-08] MEDS ORDERED: diphenhydrAMINE 50 MG/ML 1 ML VIAL IVP ONE (13:54)
[2021-01-08] MEDS ORDERED: TAMSULOSIN 0.4 MG CAP.ER.24H PO STA (14:02)
[2021-01-08 14:15] LABS: Glucose,Whole Blood 127 mg/dL (75-99)
[2021-01-08 15:25] VITALS: BP 147/77; PULSE 67; RESP 18
== END 2021-01-08 15:48 | disposition home or self-care (01) ==
LOC: OR 08:45
PROVIDERS: ATTEND Urology
DX: N20.2 Calculus of kidney with calculus of ureter (principal); J44.9 Chronic obstructive pulmonary disease, unspecified; F17.200 Nicotine dependence, unspecified, uncomplicated; F41.8 Other specified anxiety disorders; K21.9 Gastro-esophageal reflux disease without esophagitis; Z79.82 Long term (current) use of aspirin; Z87.442 Personal history of urinary calculi
CPT/HCPCS: 52356; 82365; 74420; 74018; C2625; C1758; C1769; J2250; J1200; J1100; J0690; J2405; J2001; J3010; J0330; J2704; Q9967; J1170

== ENCOUNTER 2021-03-22 06:34 | Day surgery (SDC) | payer BC ==
[2021-03-20 13:22] VITALS: BMI 23.1
--- NOTE | 2021-03-21 10:27 | P.HPIHPCON ---
History of Present Illness This is a 56-year-old male with history of [place] 7 (3+4) prostate cancer, he elected to proceed with external beam radiation therapy. Option of SpaceOR placement was discussed with him. Discussed with him risk which includes but not limited to bleeding, infection, rectal perforation. Discussed with him the purpose of the spaceOR placement is to reduce the rectal toxicity from radiation. Discussed that he could still develop rectal toxicity from radiation even with SpaceOR placement . He understood all the risk and agreed to proceed Prostate size 18 g. Consent for Procedure: I have explained the operation/procedure to the patient, including the risks, benefits, side effects, alternative therapies (including not receiving the proposed treatment or service), the likelihood of the patient achieving his/her goals, and potential recuperation problems for the procedure/sedation/analgesia, as well as any blood products, if indicated. I also explained to the patient the risks, benefits and side effects of the alternatives, as well as the risks related to not receiving the proposed procedure, care, treatment, or services. Past Medical History Past Medical History: Cancer, COPD, Eye Disorder, GERD/Reflux, Prostate Disorder Additional Past Medical History / Comment(s): Chronic SOB, nephrolithiasis/, bilatateral eye "floaters", past concussion/arm fx after 32 foot fall, PRISTATE CANCER History of Any Multi-Drug Resistant Organisms: None Reported Past Surgical History: Hernia Repair, Orthopedic Surgery Additional Past Surgical History / Comment(s): R thumb closed reduction/pinning, colonoscopy, L inguinal hernia repair. KIDNEY STONE SX Past Anesthesia/Blood Transfusion Reactions: Postoperative Nausea & Vomiting (PONV) Smoking Status: Current every day smoker - Past Family History Father Family Medical History: Coronary Artery Disease (CAD), Myocardial Infarction ([place]), Renal Disease Additional Family Medical History / Comment(s): Father is living. He had a [place] at the age of 78yrs. He is receiving renal dialysis. Mother Additional Family Medical History / Comment(s): Mother is . She had a colectomy/pt does not know reason and heart problems. Medications and Allergies Home Medications Medication Instructions Recorded Confirmed Type Albuterol Inhaler [Ventolin Hfa 1 - 2 puff INHALATION RT-Q4H PRN 08/01/20 03/20/21 History Inhaler] Fluticasone/Umeclidin/Vilanter 1 puff INHALATION RT-DAILY PRN 08/01/20 03/20/21 History [Trelegy Ellipta 100-62.5-25] Tamsulosin [Flomax] 0.4 mg PO DAILY #7 cap 01/08/21 03/20/21 Rx Acetaminophen [Tylenol Extra 1,000 mg PO DAILY PRN 03/20/21 03/20/21 History Strength] Allergies Allergy/AdvReac Type Severity Reaction Status Date / Time codeine AdvReac Nausea & Verified 03/20/21 13:12 Vomiting Surgical - Exam - General no distress, no pain - Eyes PERRL, normal ocular movement - ENT normal nares, normal mucosa - Abdomen Abdomen: soft, non tender - Psychiatric oriented to time, oriented to person, oriented to place Assessment and Plan Assessment: 56 yo male with hx of prostate cancer -OR for spaceOR placement
[~2021-03-22 06:34] MED LIST changes: +HYDROmorphone 0.5 MG/0.5 ML SYRINGE IVP PRN
[2021-03-22 07:15] VITALS: TEMP 97.8
[2021-03-22] MEDS ORDERED: fentaNYL (PF) 50 MCG/ML 2 ML AMP ONE (07:31)
[2021-03-22] MEDS ORDERED: MIDAZOLAM 2 MG/2 ML VIAL ONE (07:31)
[2021-03-22] MEDS ORDERED: PROPOFOL 10 MG/ML 20 ML VIAL IV ONE (07:31)
[2021-03-22] MEDS ORDERED: LIDOCAINE 2% (PF) 20 MG/ML 5 ML VIAL SQ ONE ×2 (07:49)
[2021-03-22] MEDS ORDERED: LIDOCAINE 2% SYG (PF) 100 MG/5 ML SQ ONE (07:49)
[2021-03-22 08:26] VITALS: BP 147/84
--- NOTE | 2021-03-22 08:34 | P.OP ---
Date of Procedure: 03/22/21 Preoperative Diagnosis: Prostate cancer Postoperative Diagnosis: Same Procedure(s) Performed: SpaceOAR Implant Anesthesia: MAC Surgeon: Jose Go Estimated Blood Loss (ml): 10 IV fluids (ml): 500 Pathology: none sent Condition: stable Disposition: PACU Indications for Procedure: This is a 56-year-old male with history of [place] 7 (3+4) prostate cancer, he elected to proceed with external beam radiation therapy. Option of SpaceOAR placement was discussed with him. Discussed with him risk which includes but not limited to bleeding, infection, rectal perforation. Discussed with him the purpose of the SpaceOAR placement is to reduce the rectal toxicity from radiation, and he has chosen to proceed with it. Operative Findings: 11 mm separation created between prostate and rectum. Description of Procedure: The patient was taken to the operating room and placed in the dorsolithotomy position, with his legs supported in Francis stirrups. The external genitalia was prepped and draped sterilely. The Bruel and Kjaer transrectal ultrasound probe was placed intrarectally. The prostate was imaged. The probe was then placed within the stabilizing stand. A spinal needle was advanced under ultrasonic guidance to the level of the urogenital diaphragm, and lidocaine was used to infiltrate the tissues as the needle was withdrawn. Next, the SpaceOAR needle was passed through the midline of the perineum, 1-2 cm anterior to the anal opening. The needle was slowly advanced under ultrasonic guidance until the needle tip was located within the fat plane between the prostate and rectum, at the level of the mid prostate gland. The needle was confirmed to be midline on the axial imaging. A small amount of normal saline was injected for hydrodissection. Next, the SpaceOAR components were mixed and loaded into the Y connector per protocol. The Y connector was then connected to the needle, and the components were injected slowly over a course of approximately 12 seconds. A total of 10 ml was injected. Significant distance was created between the prostate and rectum, as desired. It should be noted that at no point was there any concern of rectal perforation. The needle was withdrawn, as well as the transrectal ultrasound probe, and the procedure was terminated. The patient tolerated the procedure well and was taken to the recovery room in stable condition.
[2021-03-22 08:50] VITALS: PULSE 105; RESP 22
== END 2021-03-22 08:50 | disposition home or self-care (01) ==
LOC: OR 06:34
PROVIDERS: ATTEND Urology
DX: C61 Malignant neoplasm of prostate (principal); I10 Essential (primary) hypertension; J44.9 Chronic obstructive pulmonary disease, unspecified; K21.9 Gastro-esophageal reflux disease without esophagitis
CPT/HCPCS: 55874; C1889; J2250; J1100; J0690; J2405; J3010; J2704; J2001

== ENCOUNTER → 2021-05-11 | Outpatient (CLI) | payer BC ==
--- NOTE | 2021-05-11 13:35 | US ---
EXAMINATION TYPE: US scrotum with doppler. Grayscale and color Doppler Duplex imaging performed of hubert stahl scrotum. DATE OF EXAM: 05/11/2021 COMPARISON: NONE CLINICAL HISTORY: N50.812 Left testicular pain. Left testicular/groin pain onset 3am this morning, hi story of Prostate CA under current radiation treatment. EXAM MEASUREMENTS: TESTICLES: Right Testicle: 3.5 x 3.1 x 1.2 cm Left Testicle: 3.9 x 2.4 x 1.3 cm EPIDIDYMIS HEAD: Right Epididymis: 1.5 x 1.5 x 1.1 cm Left Epididymis: 1.1 x 1.2 x 1.2 cm Doppler performed to assess for testicular vascularity; good bilateral color flow and waveforms are s een. There is no evidence of testicular torsion. Presence of hydroceles: none Presence of varicoceles: none Bilateral heterogenous Epididymis IMPRESSION: 1. Normal testicular ultrasound
== END | disposition home or self-care (01) ==
LOC: RADUSWWP 12:33
PROVIDERS: ATTEND Emergency Medicine
DX: N50.812 Left testicular pain (principal)
CPT/HCPCS: 76870; 93975

== ENCOUNTER → 2021-05-14 | Outpatient (CLI) | payer BC | END | disposition home or self-care (01) | LOC: LABWHC1 09:43 | PROVIDERS: ATTEND Radiology Radiation Oncology | DX: Z00.6 Encounter for examination for normal comparison and control in clinical research program (principal); C61 Malignant neoplasm of prostate; R35.1 Nocturia | CPT/HCPCS: 36415; 84153 ==

== ENCOUNTER → 2021-06-29 | Outpatient (CLI) | payer OTHER ==
--- NOTE | 2021-06-29 15:11 | XR ---
EXAMINATION TYPE: XR Hip Complete LT DATE OF EXAM: 06/29/2021 COMPARISON: None HISTORY: Left hip pain and limited movement TECHNIQUE: 2 view left hip FINDINGS: Femoral head articulates with the acetabulum. No acute fracture or dislocation is evident. Joint space appears preserved. Follow up exams can be performed 7-10 days from acute trauma for barrie nued pain. IMPRESSION: 1. Normal 2 view left hip
== END ==
LOC: RAD 14:33
PROVIDERS: ATTEND Emergency Medicine
DX: S76.212D Strain of adductor muscle, fascia and tendon of left thigh, subsequent encounter (principal); F17.200 Nicotine dependence, unspecified, uncomplicated; Z88.5 Allergy status to narcotic agent
CPT/HCPCS: 73502

== ENCOUNTER → 2021-07-11 | Outpatient (CLI) | payer OTHER ==
--- NOTE | 2021-07-12 08:09 | CT ---
EXAMINATION TYPE: CT pelvis w con DATE OF EXAM: 07/11/2021 COMPARISON: 12/04/2020 HISTORY: 56-year-old male R19.00, Intra-abdominal/pelvic swelling or mass along the left side. TECHNIQUE: Contiguous axial scanning of the pelvis following administration of 100 ml Isovue 300 IV c ontrast. Delayed images through the bladder and coronal/sagittal reconstructions performed. CT DLP: 826 mGycm Automated exposure control for dose reduction was used. FINDINGS: Bladder is urine distended. Prostate gland measures 3.0 cm wide, not abnormally enlarged. No inguinal or femoral canal hernia identified. No inguinal or pelvic lymphadenopathy seen. A few left-sided pelvic phleboliths. Incidental mild atherosclerotic plaque and calcification bilater al common femoral arteries. The visualized distal colon shows no gross abnormal. No dilated small bowel, free fluid or free air i n the visualized lower abdomen or pelvis. Bones: Mild degenerative change at the hips. Mild disc bulging in the lower lumbar spine. IMPRESSION: NO ABNORMAL PELVIC LYMPHADENOPATHY OR DISCRETE HERNIA IS IDENTIFIED. NO SPECIFIC FINDINGS TO ACCOUNT FOR THE PATIENT'S LEFT-SIDED SWELLING. IF THERE IS PERSISTENT CLINICAL CONCERN, THE EXAM CAN BE REVIE WED WITH DIRECTED ATTENTION
== END | disposition home or self-care (01) ==
LOC: RADCTMAIN 13:58
PROVIDERS: ATTEND Surgery Plastic and Reconstructive Surgery
DX: R19.00 Intra-abdominal and pelvic swelling, mass and lump, unspecified site (principal)
CPT/HCPCS: 72193; Q9967

== ENCOUNTER → 2021-08-07 | Outpatient (CLI) | payer BC | END | disposition home or self-care (01) | LOC: LABWHC1 09:09 | PROVIDERS: ATTEND Radiology Radiation Oncology | DX: Z00.6 Encounter for examination for normal comparison and control in clinical research program (principal); C61 Malignant neoplasm of prostate; N40.0 Benign prostatic hyperplasia without lower urinary tract symptoms; R35.1 Nocturia | CPT/HCPCS: 36415; 84153 ==

== ENCOUNTER 2021-10-05 19:03 | Emergency (ER) | payer BC ==
[2021-10-05 19:24] VITALS: BP 130/80; PULSE 95; RESP 18; TEMP 99.1
--- NOTE | 2021-10-05 19:44 | XR ---
EXAMINATION TYPE: XR chest 2V DATE OF EXAM: 10/05/2021 7:37 PM COMPARISON: 08/01/2020 TECHNIQUE: XR chest 2V Frontal view of the chest. CLINICAL INDICATION:Male, 56 years old with history of cough; FINDINGS: Lungs/Pleura: There is flattening of the diaphragm with increased lucency of the lungs. No evidence o f pneumothorax, pleural effusion or focal consolidation. Pulmonary vascularity: Unremarkable. Heart/mediastinum: Cardiomediastinal silhouette is unremarkable. Musculoskeletal: No acute osseous pathology. IMPRESSION: 1. No acute cardiopulmonary disease process. 2. COPD changes.
== END 2021-10-05 23:47 | disposition left against medical advice (07) ==
LOC: EC 19:03
DX: Z53.21 Procedure and treatment not carried out due to patient leaving prior to being seen by health care provider (principal)
CPT/HCPCS: 71046; 87636; 99499

== ENCOUNTER 2021-11-08 10:05 | Emergency (ER) | payer BC ==
[2021-11-08 10:12] VITALS: RESP 18
--- NOTE | 2021-11-08 10:25 | ED ---
General Adult HPI - General Chief complaint: Fall Stated complaint: [facility]-fall Time Seen by Provider: 11/08/21 10:16 Source: patient, RN notes reviewed, old records reviewed Mode of arrival: ambulatory Limitations: no limitations - History of Present Illness Initial comments: 56-year-old male presenting for evaluation of head, neck, and right arm pain aft er fall which occurred 1 hour prior to arrival. Patient states he was jumping out of a dumpster and fell onto his right side. This was at least 8 feet. There is no loss consciousness. He did have head injury and sustained some neck injury as well. He has pain in his right shoulder and right lateral chest wall. No abdominal pain. - Related Data Home Medications Medication Instructions Recorded Confirmed Albuterol Inhaler [Ventolin Hfa 1 - 2 puff INHALATION RT-Q4H PRN 08/01/20 11/08/21 Inhaler] Fluticasone/Umeclidin/Vilanter 1 puff INHALATION RT-DAILY 08/01/20 11/08/21 [Trelegy Ellipta 100-62.5-25] Previous Rx's Medication Instructions Recorded Ibuprofen [Motrin] 600 mg PO Q8HR PRN #24 tab 11/08/21 Allergies Allergy/AdvReac Type Severity Reaction Status Date / Time codeine AdvReac Nausea & Verified 11/08/21 11:10 Vomiting Review of Systems ROS Statement: Those systems with pertinent positive or pertinent negative responses have been documented in the HPI. ROS Other: All systems not noted in ROS Statement are negative. Past Medical History Past Medical History: Cancer, COPD, Eye Disorder, GERD/Reflux, Prostate Disorder Additional Past Medical History / Comment(s): Chronic SOB, nephrolithiasis/, bilatateral eye "floaters", past concussion/arm fx after 32 foot fall, [facility] History of Any Multi-Drug Resistant Organisms: None Reported Past Surgical History: Hernia Repair, Orthopedic Surgery Additional Past Surgical History / Comment(s): R thumb closed reduction/pinning, colonoscopy, L inguinal hernia repair. KIDNEY STONE SX Past Anesthesia/Blood Transfusion Reactions: Postoperative Nausea & Vomiting (PONV) Past Psychological History: No Psychological Hx Reported Smoking Status: Current every day smoker Past Alcohol Use History: Occasional Past Drug Use History: None Reported - Past Family History Father Family Medical History: Coronary Artery Disease (CAD), Myocardial Infarction ([place]), Renal Disease Additional Family Medical History / Comment(s): Father is living. He had a [place] at the age of 78yrs. He is receiving renal dialysis. Mother Additional Family Medical History / Comment(s): Mother is . She had a colectomy/pt does not know reason and heart problems. General Exam Limitations: no limitations General appearance: alert, in no apparent distress Head exam: Present: atraumatic, normocephalic Eye exam: Present: normal appearance, PERRL ENT exam: Present: normal exam Neck exam: Present: normal inspection, tenderness Respiratory exam: Present: normal lung sounds bilaterally, chest wall tenderness. Absent: respiratory distress, wheezes Cardiovascular Exam: Present: regular rate, normal rhythm GI/Abdominal exam: Present: soft. Absent: distended, tenderness, guarding Extremities exam: Present: normal inspection, normal capillary refill. Absent: pedal edema Neurological exam: Present: alert, oriented X3, CN II-XII intact, normal gait. Absent: motor sensory deficit Psychiatric exam: Present: normal affect, normal mood Skin exam: Present: warm, dry, intact. Absent: cyanosis, diaphoretic Course Vital Signs 11/08/21 11/08/21 11/08/21 10:06 10:18 12:51 Temperature 97.5 F L Pulse Rate 74 69 66 Respiratory 18 18 18 Rate Blood Pressure 140/89 150/86 131/83 O2 Sat by Pulse 96 99 95 Oximetry Medical Decision Making - Medical Decision Making 56-year-old male with fall onto his right side. No external signs of trauma, normal abdominal exam, normal cardiopulmonary exam, chest wall tenderness on the right and mild pain in the right shoulder with range of motion and right paraspinal muscle tenderness. Imaging perform CT brain, CT cervical spine negative for traumatic injury, x-ray of the chest and right shoulder negative for traumatic injury. There is no blood on urinalysis. Patient does not require pain medication the emergency department. He is reassured. Stable for discharge. - Lab Data Lab Results 11/08/21 Range/Units 12:13 Urine Color Yellow Urine Appearance Clear (Clear) Urine pH 7.5 (5.0-8.0) Ur Specific [place] 1.017 (1.001-1.035) Urine Protein Negative (Negative) Urine Glucose (UA) Negative (Negative) Urine Ketones Negative (Negative) Urine Blood Negative (Negative) Urine Nitrite Negative (Negative) Urine Bilirubin Negative (Negative) Urine Urobilinogen <2.0 (<2.0) mg/dL Ur Leukocyte Esterase Negative (Negative) Disposition Clinical Impression: Chest wall contusion Disposition: HOME SELF-CARE Condition: Fair Instructions (If sedation given, give patient instructions): Chest Wall Pain (ED), Contusion in Adults (ED) Prescriptions: Ibuprofen [Motrin] 600 mg PO Q8HR PRN #24 tab PRN Reason: Pain Is patient prescribed a controlled substance at d/c from ED?: No Referrals: Arturo Esparza MD [Primary Care Provider] - 1-2 days Time of Disposition: 13:03
--- NOTE | 2021-11-08 10:56 | XR ---
EXAMINATION TYPE: XR shoulder complete RT DATE OF EXAM: 11/08/2021 COMPARISON: NONE HISTORY: Pain TECHNIQUE: Shoulder examined in 3 projections FINDINGS: The humeral head articulates with the glenoid. The acromio-clavicular junction is normal. No acute fractures or dislocations are evident. A follow up study can be performed 7-10 days from acute trauma for continued pain. IMPRESSION: 1. No acute osseous abnormality right shoulder
--- NOTE | 2021-11-08 10:57 | XR ---
EXAMINATION TYPE: XR chest 2V DATE OF EXAM: 11/08/2021 COMPARISON: 10/05/2021 INDICATION: Pain after falling TECHNIQUE: Frontal and lateral views of the chest are obtained. FINDINGS: The heart size is normal. The pulmonary vasculature is normal. The lungs are clear. No pneumothorax is evident. No acute osseous abnormality is evident. IMPRESSION: 1. No acute pulmonary process.
--- NOTE | 2021-11-08 10:59 | CT ---
EXAMINATION TYPE: CT brain cspine wo con DATE OF EXAM: 11/08/2021 COMPARISON: CT dated 08/01/2020 HISTORY: Fall. CT DLP: 1346.1 mGycm Automated exposure control for dose reduction was used. TECHNIQUE: CT scan of the head and cervical spine are performed without contrast. FINDINGS: There is no acute intracranial hemorrhage, mass effect, or midline shift identified. The ventricles and sulci are within normal limits in size. The globes are intact and the visualized sin uses are clear. Cervical spine is visualized in its entirety from C1 through upper thoracic levels and demonstrates s atisfactory alignment without evidence of acute fracture or dislocation. Prevertebral soft tissue ap pears within normal limits. The C1-C2 articulation is unremarkable. 5 mm irregular nodule in the rig ht lung apex, for further elective CT assessment. IMPRESSION: 1. There is no acute fracture or dislocation evident in the cervical spine. 2. No acute intracranial hemorrhage, mass effect, or midline shift is seen. 3. Right apical pulmonary nodule as described above, for further elective CT assessment.
[2021-11-08 12:30] LABS: Appearance,Urine Clear (Clear); Bilirubin,Urine Negative (Negative); Blood,Urine Negative (Negative); Color,Urine Yellow; Glucose,Urine (UA) Negative (Negative); Ketones,Urine Negative (Negative); Leukocyte Esterase,Urine Negative (Negative); Nitrite,Urine Negative (Negative); PH, Urine 7.5 (5.0-8.0); Protein,Urine Negative (Negative); Specific Gravity,Urine 1.017 (1.001-1.035); Urobilinogen,Urine <2.0 mg/dL (<2.0)
[2021-11-08 16:10] VITALS: BP 134/88; PULSE 69; TEMP 98.4
== END 2021-11-08 13:06 | disposition home or self-care (01) ==
LOC: EC 10:05
DX: S20.219A Contusion of unspecified front wall of thorax, initial encounter (principal); M25.511 Pain in right shoulder; J44.9 Chronic obstructive pulmonary disease, unspecified; K21.9 Gastro-esophageal reflux disease without esophagitis; F17.200 Nicotine dependence, unspecified, uncomplicated; Z79.51 Long term (current) use of inhaled steroids; Z88.5 Allergy status to narcotic agent; W17.89XA Other fall from one level to another, initial encounter; Y93.39 Activity, other involving climbing, rappelling and jumping off
CPT/HCPCS: 70450; 71046; 72125; 81003; 99284

== ENCOUNTER 2022-03-06 07:09 | Emergency (ER) | payer BC ==
[2022-03-06 07:21] VITALS: TEMP 97.8
[2022-03-06] MEDS ORDERED: NITROGLYCERIN SL TABS 0.4 MG TAB SUBLINGUAL STA ×2 (07:35→08:04)
[2022-03-06] MEDS ORDERED: ASPIRIN 81 MG PO STA (07:35)
--- NOTE | 2022-03-06 07:36 | ED ---
General Adult HPI - General Chief complaint: Chest Pain Stated complaint: Chest Pain Time Seen by Provider: 03/06/22 07:25 Source: patient Mode of arrival: ambulatory Limitations: no limitations - History of Present Illness Initial comments: Patient is a 57-year-old male with past medical history remarkable for prostate cancer status post radiation, prior stroke, hematuria, prostate issues who presents emergency Department complaining of chest pain. Chest pain started 2 hours prior to arrival. Describes it as a squeezing sensation all over the fro nt of his chest. He endorses mild increased work of breathing but denies any fevers, chills, cough. Does have a history of COPD but this does not feel like his COPD per patient. Denies any diaphoresis, nausea, vomiting. Denies any abdominal pain. Was due to get a CAT scan to evaluate his bladder and kidneys today. Denies any anxiety regarding this. Has not had this chest pain previously. Denies any lower extremity edema, orthopnea, PND. Presents for further evaluation. Denies any history cardiac disease. There is a family history of heart attacks. No history of blood clots. No known palliative or provocative factors. was sitting when the pain started. - Related Data Home Medications Medication Instructions Recorded Confirmed Albuterol Inhaler [Ventolin Hfa 1 - 2 puff INHALATION RT-Q4H PRN 08/01/20 03/06/22 Inhaler] Fluticasone/Umeclidin/Vilanter 1 puff INHALATION RT-DAILY 03/06/22 03/06/22 [Trelegy Ellipta 200-62.5-25] Previous Rx's Medication Instructions Recorded Albuterol Inhaler [Ventolin Hfa 1 puff INHALATION TID #8 gm 03/06/22 Inhaler] predniSONE [Deltasone] 40 mg PO DAILY 5 Days #10 tab 03/06/22 Allergies Allergy/AdvReac Type Severity Reaction Status Date / Time codeine AdvReac Nausea & Verified 03/06/22 10:44 Vomiting Review of Systems ROS Statement: Those systems with pertinent positive or pertinent negative responses have been documented in the HPI. Review of Systems: CONST: Denies fever EYES: Denies blurry vision ENT: Denies nasal congestion C/V: Endorses chest pain RESP: Denies shortness of breath GI: Denies abdominal pain : Denies dysuria SKIN: Denies rash. MSK: Denies joint pain. NEURO: Denies headache ROS Other: All systems not noted in ROS Statement are negative. Past Medical History Past Medical History: Cancer, COPD, Eye Disorder, GERD/Reflux, Prostate Disorder Additional Past Medical History / Comment(s): Chronic SOB, nephrolithiasis/, bilatateral eye "floaters", past concussion/arm fx after 32 foot fall, PRISTATE CANCER History of Any Multi-Drug Resistant Organisms: None Reported Past Surgical History: Hernia Repair, Orthopedic Surgery Additional Past Surgical History / Comment(s): R thumb closed reduction/pinning, colonoscopy, L inguinal hernia repair. KIDNEY STONE SX Past Anesthesia/Blood Transfusion Reactions: Postoperative Nausea & Vomiting (PONV) Past Psychological History: No Psychological Hx Reported Smoking Status: Current every day smoker Past Alcohol Use History: Occasional Past Drug Use History: None Reported - Past Family History Father Family Medical History: Coronary Artery Disease (CAD), Myocardial Infarction ([place]), Renal Disease Additional Family Medical History / Comment(s): Father is living. He had a NC at the age of 78yrs. He is receiving renal dialysis. Mother Additional Family Medical History / Comment(s): Mother is . She had a colectomy/pt does not know reason and heart problems. General Exam - General Exam Comments Initial Comments: General: Appears in no acute distress. HEAD: Normal with no signs of head trauma. EYES: PERRLA, EOMI, conjunctiva normal, no discharge. ENT: Hearing grossly intact, normal oropharynx. RESPIRATORY: Mild bilateral end expiratory wheezing. no hypoxia. No increased work of breathing. C/V: Regular rate and rhythm. S1 and S2 auscultated, no edema, peripheral pulses 2+ and intact throughout. Chest pain is mildly reproducible on palpation. ABD: Abd is soft, nontender, nondistended EXT: Normal range of motion, no obvious deformity SKIN: No rashes or lesions observed on exposed skin. NEURO: Alert and oriented x 4. Cranial nerves II-XII intact. No focal sensory or strength deficits. Limitations: no limitations Course Vital Signs 03/06/22 03/06/22 03/06/22 07:19 07:55 08:27 Temperature 97.8 F Pulse Rate 81 73 79 Respiratory 16 16 17 Rate Blood Pressure 160/93 141/83 125/83 O2 Sat by Pulse 98 95 95 Oximetry 03/06/22 03/06/22 03/06/22 08:54 09:02 09:32 Temperature Pulse Rate 75 71 72 Respiratory 18 18 18 Rate Blood Pressure O2 Sat by Pulse Oximetry 03/06/22 03/06/22 09:41 12:13 Temperature Pulse Rate 73 81 Respiratory 18 16 Rate Blood Pressure 104/66 O2 Sat by Pulse 95 Oximetry Medical Decision Making - Medical Decision Making Based on the patient's presentation and physical exam, cannot rule out cardiopulmonary etiology for his current chest pain. May be having a mild COPD exacerbation as well. We will obtain a cardiac workup including EKG, chest x- ray, cardiac labs. With his history of cancer and atypical chest pain, cannot rule out PE as the cause either. Therefore screening d-dimer will be obtained. Vital signs are within normal limits. Patient will be given 324 milligrams of aspirin. Patient will be given nitroglycerin tablets and evaluated for improvement in pain. He was in agreement with this plan. Will treat the COPD with steroids and breathing treatments. No change in chest pain following multiple nitroglycerin tablets. Will administer toradol. EKG showed no signs of acute ischemia. Chest xray showed no acute cardiopulmonary process. Labs were unremarkable including initial undetectable troponin. On re-evaluation. Patient's chest pain is nearly resolved. I updated him regarding his negative workup thus far. Discussed observation admission versus discharge home. He would like to go home if possible. We decided to obtain a 3 hour troponin and determine dispo. He was in agreement with the plan. Wheezing is improved at this time as well. Repeat troponin was undetectable. Updated the patient who is asymptomatic. Heart score is low with multiple undetectable troponins and resolution of symptoms. Patient would like to go home which I believe is reasonable. Discussed strict return precautions. Called outpatient CT and he will go straight there following discharge. I will provide the patient with a prescription for prednisone and albuterol. I instructed the patient to follow up with their PCP in the next 1-3 days. I explained that the patient should return to the emergency department if they experience any worsening symptoms. Strict return precautions were discussed with the patient. The patient expressed understanding of these instructions. I answered all questions that the patient had. The patient was discharged home in good condition with their prescriptions and follow up information. - Lab Data Result diagrams: 03/06/22 07:41 03/06/22 07:41 Lab Results 03/06/22 03/06/22 03/06/22 Range/Units 07:41 07:41 07:41 WBC 10.8 H (3.8-10.6) k/uL RBC 4.91 (4.30-5.90) m/uL Hgb 15.3 (13.0-17.5) gm/dL Hct 45.0 (39.0-53.0) % MCV 91.6 (80.0-100.0) fL MCH 31.2 (25.0-35.0) pg MCHC 34.1 (31.0-37.0) g/dL RDW 13.0 (11.5-15.5) % Plt Count 216 (150-450) k/uL MPV 7.1 Neutrophils % 81 % Lymphocytes % 11 % Monocytes % 5 % Eosinophils % 1 % Basophils % 0 % Neutrophils # 8.8 H (1.3-7.7) k/uL Lymphocytes # 1.2 (1.0-4.8) k/uL Monocytes # 0.6 (0-1.0) k/uL Eosinophils # 0.2 (0-0.7) k/uL Basophils # 0.1 (0-0.2) k/uL PT 9.9 (9.0-12.0) sec INR 0.9 (<1.2) APTT 22.4 (22.0-30.0) sec D-Dimer 0.32 (<0.60) mg/L FEU Sodium 136 L (137-145) mmol/L Potassium 4.2 (3.5-5.1) mmol/L Chloride 104 (98-107) mmol/L Carbon Dioxide 23 (22-30) mmol/L Anion Gap 9 mmol/L BUN 15 (9-20) mg/dL Creatinine 0.76 (0.66-1.25) mg/dL Est GFR (CKD-EPI)AfAm >90 (>60 ml/min/1.73 sqM) Est GFR (CKD-EPI)NonAf >90 (>60 ml/min/1.73 sqM) Glucose 116 H (74-99) mg/dL Calcium 9.2 (8.4-10.2) mg/dL Magnesium 1.9 (1.6-2.3) mg/dL Total Bilirubin 0.6 (0.2-1.3) mg/dL AST 19 (17-59) U/L ALT 18 (4-49) U/L Alkaline Phosphatase 76 (38-126) U/L Troponin I (0.000-0.034) ng/mL Total Protein 6.6 (6.3-8.2) g/dL Albumin 4.4 (3.5-5.0) g/dL 03/06/22 03/06/22 Range/Units 07:41 10:54 WBC (3.8-10.6) k/uL RBC (4.30-5.90) m/uL Hgb (13.0-17.5) gm/dL Hct (39.0-53.0) % MCV (80.0-100.0) fL MCH (25.0-35.0) pg MCHC (31.0-37.0) g/dL RDW (11.5-15.5) % Plt Count (150-450) k/uL MPV Neutrophils % % Lymphocytes % % Monocytes % % Eosinophils % % Basophils % % Neutrophils # (1.3-7.7) k/uL Lymphocytes # (1.0-4.8) k/uL Monocytes # (0-1.0) k/uL Eosinophils # (0-0.7) k/uL Basophils # (0-0.2) k/uL PT (9.0-12.0) sec INR (<1.2) APTT (22.0-30.0) sec D-Dimer (<0.60) mg/L FEU Sodium (137-145) mmol/L Potassium (3.5-5.1) mmol/L Chloride (98-107) mmol/L Carbon Dioxide (22-30) mmol/L Anion Gap mmol/L BUN (9-20) mg/dL Creatinine (0.66-1.25) mg/dL Est GFR (CKD-EPI)AfAm (>60 ml/min/1.73 sqM) Est GFR (CKD-EPI)NonAf (>60 ml/min/1.73 sqM) Glucose (74-99) mg/dL Calcium (8.4-10.2) mg/dL Magnesium (1.6-2.3) mg/dL Total Bilirubin (0.2-1.3) mg/dL AST (17-59) U/L ALT (4-49) U/L Alkaline Phosphatase (38-126) U/L Troponin I <0.012 <0.012 (0.000-0.034) ng/mL Total Protein (6.3-8.2) g/dL Albumin (3.5-5.0) g/dL - EKG Data -: EKG Interpreted by Me EKG Comments: 12-lead Electrocardiogram Interpretation Note EKG was reviewed and interpreted by myself. 12-lead ECG performed at 0734 is interpreted by me as revealing normal sinus rhythm at a rate of 71 beats per minute. [place] is normal. [place] interval is 154 ms, QRS duration is 94 ms, QTc is 405 ms.. There were no ST or T wave abnormalities to suggest myocardial ischemia or injury. R wave progression across the precordium was satisfactory. By my interpretation this EKG is non-diagnostic for acute ischemia. Disposition Clinical Impression: Chest pain, COPD exacerbation Disposition: HOME SELF-CARE Condition: Good Prescriptions: predniSONE [Deltasone] 40 mg PO DAILY 5 Days #10 tab Albuterol Inhaler [Ventolin Hfa Inhaler] 1 puff INHALATION TID #8 gm Is patient prescribed a controlled substance at d/c from ED?: No Referrals: Arturo Esparza MD [Primary Care Provider] - 1-2 days Time of Disposition: 11:30
[2022-03-06 07:57] LABS: Basophils # (A) 0.1 k/uL (0-0.2); Basophils % (A) 0 %; Eosinophils # (A) 0.2 k/uL (0-0.7); Eosinophils % (A) 1 %; HGB 15.3 gm/dL (13.0-17.5); Lymphocytes # (A) 1.2 k/uL (1.0-4.8); Lymphocytes % (A) 11 %; MCH 31.2 pg (25.0-35.0); MCHC 34.1 g/dL (31.0-37.0); MCV 91.6 fL (80.0-100.0); Mean Platelet Volume 7.1; Monocytes # (A) 0.6 k/uL (0-1.0); Monocytes % (A) 5 %; Neutrophils # (A) 8.8 k/uL (1.3-7.7); Neutrophils % (A) 81 %; Platelet Count 216 k/uL (150-450); RBC 4.91 m/uL (4.30-5.90); WBC 10.8 k/uL (3.8-10.6)
[2022-03-06 08:14] LABS: INR 0.9 (<1.2); Prothrombin Time 9.9 sec (9.0-12.0)
[2022-03-06 08:15] LABS: Partial Thromboplastin Time 22.4 sec (22.0-30.0)
[2022-03-06] MEDS ORDERED: IPRATROPIUM-ALBUTEROL 3 ML NEB INHALATION STA (08:18)
[2022-03-06] MEDS ORDERED: methylPREDNISolone SOD SUCCI 40 MG/ML 1 ML VIAL IV STA (08:18)
[2022-03-06 08:21] LABS: ALT 18 U/L (4-49); AST 19 U/L (17-59); African American GFR (CKD) >90 (>60 ml/min/1.73 sqM); Albumin 4.4 g/dL (3.5-5.0); Alkaline Phosphatase 76 U/L (38-126); Anion Gap 9 mmol/L; Blood Urea Nitrogen 15 mg/dL (9-20); Calcium 9.2 mg/dL (8.4-10.2); Carbon Dioxide 23 mmol/L (22-30); Chloride 104 mmol/L (98-107); Glucose 116 mg/dL (74-99); Magnesium 1.9 mg/dL (1.6-2.3); Non-African American GFR(CKD) >90 (>60 ml/min/1.73 sqM); Potassium 4.2 mmol/L (3.5-5.1); Sodium 136 mmol/L (137-145); Total Bilirubin 0.6 mg/dL (0.2-1.3); Total Protein 6.6 g/dL (6.3-8.2)
--- NOTE | 2022-03-06 08:31 | XR ---
EXAMINATION TYPE: XR chest 2V DATE OF EXAM: 03/06/2022 5:16 AM COMPARISON: Chest radiographs from 11/08/2021 TECHNIQUE: XR chest 2V Frontal and lateral views of the chest. CLINICAL INDICATION:Male, 57 years old with history of Chest Pain; FINDINGS: Lungs/Pleura: There is no evidence of pleural effusion, focal consolidation, or pneumothorax. Pulmonary vascularity: Unremarkable. Heart/mediastinum: Cardiomediastinal silhouette is unremarkable. Musculoskeletal: No acute osseous pathology. IMPRESSION: No acute cardiopulmonary disease/process.
[2022-03-06] MEDS ORDERED: KETOROLAC 15 MG/ML 1 ML VIAL IVP STA (09:04)
[2022-03-06] MEDS ORDERED: IPRATROPIUM-ALBUTEROL 3 ML NEB INHALATION ONE (09:30)
[2022-03-06 12:15] VITALS: BP 104/66; PULSE 81; RESP 16
== END 2022-03-06 12:22 | disposition home or self-care (01) ==
LOC: EC 07:09
DX: J44.1 Chronic obstructive pulmonary disease with (acute) exacerbation (principal); F17.200 Nicotine dependence, unspecified, uncomplicated; Z88.5 Allergy status to narcotic agent; Z79.51 Long term (current) use of inhaled steroids
CPT/HCPCS: 96374 ×2; 96375 ×2; 99285 ×2; 36415; 94640 ×2; 93005; 85379; 80053; 83735; 84484; 85025; 85610; 85730; 71046; J2920; J1885

== ENCOUNTER → 2022-03-06 | Outpatient (CLI) | payer BC ==
--- NOTE | 2022-03-06 18:09 | CT ---
EXAMINATION TYPE: CT urogram wo/w con DATE OF EXAM: 03/06/2022 COMPARISON: 07/11/2021 INDICATION: Hematuria, history of prostate CA DLP: 2039 mGycm, Automated exposure control for dose reduction was used. CONTRAST: 100 mL of Isovue 300. Study performed TECHNIQUE: Axial images were obtained from above the diaphragm to the pubic rami in the axial plane a t 5 mm thick sections. Reconstructed images are reviewed on the computer in the coronal plane. FINDINGS: Limited CT sections are obtained the lung bases. The lung bases are clear. CT ABDOMEN: Liver: Normal Spleen: Normal Pancreas: Normal Adrenal glands: The adrenal glands are normal. Gallbladder: Normal Kidneys: There is a 0.3 cm nonobstructing renal stone within the right kidney mid to upper pole. Punc may nonobstructing renal stones are within the posterior and lateral midportion left kidney.There is a nonobstructing 0.3 cm calcification posterior lateral left kidney. Punctate nonobstructing renal s tones are the inferior pole right kidney with the largest measuring approximately 0.3 cm. No hydronep hrosis is present. There is a rounded density extending from the lateral margin right kidney measuring 2.0 cm and 21 [place]field units. Cyst appears to be present. This is better visualized on the delayed images. Delayed i mages were obtained through the kidneys. These better visualize the renal cysts as bilaterally. Urinary collecting system appears normal. Renal calyces infundibula and renal pelves appear normal. U reters follow a normal caliber course and contour to the urinary bladder. Rotating 3-D reconstructive images performed on a separate computer by the technologist for review. Aorta: Vascular calcification is within the aorta. Inferior vena cava: Normal. CT PELVIS: Loops of bowel within the abdomen and pelvis are normal. This study without oral contrast limitin g evaluation. Appendix: Not identified. No inflammatory changes or dilated tubular structures evident. Urinary bladder: Normal as visualized (partially filled with contrast during the exam. No filling def ects are identified. Genitourinary structures: Prostate contains calcification. Patient's reported prostate cancer is not specifically identified within the prostate this time. Osseous structures: No suspicious lytic or sclerotic lesions. IMPRESSIONS: 1. Multiple small nonobstructing renal stones present bilaterally. 2. Bilateral renal cysts.
== END | disposition home or self-care (01) ==
LOC: RADCTMAIN 12:26
PROVIDERS: ATTEND Urology
DX: N20.0 Calculus of kidney (principal); N28.1 Cyst of kidney, acquired
CPT/HCPCS: 74178; 74400; Q9967

== ENCOUNTER → 2022-04-08 | Outpatient (CLI) | payer BC ==
--- NOTE | 2022-04-08 13:28 | XR ---
EXAMINATION TYPE: XR lumbar spine 2 or 3V DATE OF EXAM: 04/08/2022 CLINICAL HISTORY: Low back pain. TECHNIQUE: Three views of the lumbar spine are submitted. COMPARISON: CT urogram 03/06/2022. FINDINGS: There are 5 lumbar type vertebral bodies identified. Dextrocurvature of the lumbar spine. The lumbar spine shows satisfactory alignment without evidence of acute fracture or dislocation. Anterior spurri ng of the L4 vertebral body. Vertebral body heights are within normal limits. Disc spaces are withi n normal limits. The overlying soft tissue appears unremarkable. Vascular sclerosis. IMPRESSION: No acute fracture or dislocation is seen in the lumbar spine.
== END | disposition home or self-care (01) ==
LOC: RADXRMAIN 12:51
PROVIDERS: ATTEND Internal Medicine
DX: M54.50 Low back pain, unspecified (principal)
CPT/HCPCS: 72100

== ENCOUNTER → 2022-05-16 | Outpatient (CLI) | payer BC | END | disposition home or self-care (01) | LOC: LABWHC1 15:28 | PROVIDERS: ATTEND Radiology Radiation Oncology | DX: Z00.6 Encounter for examination for normal comparison and control in clinical research program (principal); C61 Malignant neoplasm of prostate; N40.0 Benign prostatic hyperplasia without lower urinary tract symptoms; R35.1 Nocturia | CPT/HCPCS: 36415; 84153 ==

== ENCOUNTER 2022-06-03 07:00 | Emergency (ER) | payer BC ==
[2022-06-03] MEDS ORDERED: SODIUM CHLORIDE 0.9% 1,000 ML IV STA (07:06)
[2022-06-03] MEDS ORDERED: SODIUM CHLORIDE 0.9% 500 ML 500 ML IV STA (07:06)
[2022-06-03] MEDS ORDERED: MECLIZINE 12.5 MG TAB PO STA (07:06)
--- NOTE | 2022-06-03 07:09 | ED ---
Dizziness HPI - General Stated Complaint: Nausea, Vomiting Time Seen by Provider: 06/03/22 07:00 Source: patient, EMS, RN notes reviewed Mode of arrival: EMS Limitations: no limitations - History of Present Illness Initial Comments: 57-year-old male presents emergency from via EMS chief complaint of dizziness. Patient states that it started the last night had worsened at work. Patient states that if he tilts his head back or moves symptoms worsen. Patient states he had near syncopal episode. Patient states is very nauseated but did receive Zofran has helped. He states he was recently in emergency department for chest pain was sent home. Patient has no point a chest pain or shortness breath. Patient does admit that he's had a recent URI and has some congestion. Patient denies any fevers chills. Patient states she's never had this insects in the past. Patient does admit to some anxiety - Related Data Home Medications Medication Instructions Recorded Confirmed Albuterol Inhaler [Ventolin Hfa 1 - 2 puff INHALATION RT-Q4H PRN 08/01/20 03/06/22 Inhaler] Fluticasone/Umeclidin/Vilanter 1 puff INHALATION RT-DAILY 03/06/22 03/06/22 [Trelegy Ellipta 200-62.5-25] Previous Rx's Medication Instructions Recorded Albuterol Inhaler [Ventolin Hfa 1 puff INHALATION TID #8 gm 03/06/22 Inhaler] predniSONE [Deltasone] 40 mg PO DAILY 5 Days #10 tab 03/06/22 Butenafine HCl [Lotrimin Ultra] 1 applic TOPICAL BID #24 gm 06/03/22 Meclizine [Antivert] 25 mg PO TID PRN #15 tab 06/03/22 Ondansetron Odt [Zofran Odt] 4 mg PO Q8HR PRN #10 tab 06/03/22 Allergies Allergy/AdvReac Type Severity Reaction Status Date / Time codeine AdvReac Nausea & Verified 06/03/22 07:28 Vomiting Review of Systems ROS Statement: Those systems with pertinent positive or pertinent negative responses have been documented in the HPI. ROS Other: All systems not noted in ROS Statement are negative. Past Medical History Past Medical History: Cancer, COPD, Eye Disorder, GERD/Reflux, Prostate Disorder Additional Past Medical History / Comment(s): Chronic SOB, nephrolithiasis/, bilatateral eye "floaters", past concussion/arm fx after 32 foot fall, PRISTATE CANCER History of Any Multi-Drug Resistant Organisms: None Reported Past Surgical History: Hernia Repair, Orthopedic Surgery Additional Past Surgical History / Comment(s): R thumb closed reduction/pinning, colonoscopy, L inguinal hernia repair. KIDNEY STONE SX Past Anesthesia/Blood Transfusion Reactions: Postoperative Nausea & Vomiting (PONV) Past Psychological History: No Psychological Hx Reported Smoking Status: Current every day smoker Past Alcohol Use History: Occasional Past Drug Use History: None Reported - Past Family History Father Family Medical History: Coronary Artery Disease (CAD), Myocardial Infarction ([place]), Renal Disease Additional Family Medical History / Comment(s): Father is living. He had a [place] at the age of 78yrs. He is receiving renal dialysis. Mother Additional Family Medical History / Comment(s): Mother is . She had a colectomy/pt does not know reason and heart problems. General Exam Limitations: no limitations General appearance: alert, in no apparent distress Head exam: Present: atraumatic, normocephalic, normal inspection Eye exam: Present: normal appearance, PERRL, EOMI. Absent: scleral icterus, conjunctival injection, periorbital swelling ENT exam: Present: normal exam, normal oropharynx, mucous membranes moist Neck exam: Present: normal inspection, full ROM. Absent: tenderness, meningismus, lymphadenopathy Respiratory exam: Present: normal lung sounds bilaterally. Absent: respiratory distress, wheezes, rales, rhonchi, stridor Cardiovascular Exam: Present: regular rate, normal rhythm, normal heart sounds. Absent: systolic murmur, diastolic murmur, rubs, gallop, clicks Extremities exam: Present: normal inspection, full ROM, normal capillary refill. Absent: tenderness, pedal edema, joint swelling, calf tenderness Neurological exam: Present: alert, oriented X3, CN II-XII intact, reflexes normal, other (Finger to nose intact bilaterally without overshooting). Absent: motor sensory deficit Skin exam: Present: warm, dry, intact, normal color. Absent: rash Course Vital Signs 06/03/22 07:23 Pulse Rate 65 Respiratory 18 Rate Blood Pressure 137/90 O2 Sat by Pulse 94 L Oximetry - Reevaluation(s) Reevaluation #1: 06/03/22 09:01 Patient reevaluated and updated on results. Patient is feeling greatly improved after Antivert. Medical Decision Making - Medical Decision Making Was pt. sent in by a medical professional or institution? @ -no Did you speak to anyone other than the patient for history? @ -EMS provided prehospital care, information. Did you review nursing and triage notes? @ -Agree reviewed Were old charts reviewed? @ -no Differential Diagnosis? @ -Vertigo, CVA, TIA, Mnire's, otitis media, ACS, this list is not meant to be on close EKG interpreted by me (3pts min.)? @ -EKG interpreted by me sinus rhythm rate of 69 OH 157 QRS 90 QT/QTC 42/421 X-rays interpreted by me (1pt min.)? @ -Chest x-ray interpreted by me no acute process. CT interpreted by me (1pt min.)? @ -CT brain interpreted by me no acute intracranial process. U/S interpreted by me (1pt. min.)? @ -no What testing was considered but not performed? (CT, X-rays, U/S, labs)? Why? @ no What meds were considered but not given? Why? @ -Valium, Reglan for dizziness those symptoms resolved after Zofran and Antivert Did you discuss the management of the patient with other professionals? @ -no Did you reconcile home meds? @ -no Was smoking cessation discussed for >3mins.? @ -no Was critical care preformed (if so, how long)? @ -no Were there social determinants of health that impacted care today? How? (Homelessness, low income, unemployed, alcoholism, drug addiction, transpor tation, low edu. Level, literacy, decrease access to med. care, skilled nursing, rehab)? @ -no Was there de-escalation of care discussed even if they declined? (Discuss DNR or withdrawal of care, Hospice)? @ -no What co-morbidities impacted this encounter? (DM, HTN, Smoking, COPD, CAD, Cancer, CVA, Hep., AIDS, mental health diagnosis, sleep apnea, morbid obesity)? @ -HTN Was patient admitted / discharged? @ -Discharged Undiagnosed new problem with uncertain prognosis? @ -no Drug Therapy requiring intensive monitoring for toxicity (Heparin, Nitro, Insulin, Cardizem)? @ -no Were any procedures done? @ -no Diagnosis/symptom? @ -Vertigo Acute, or Chronic, or Acute on Chronic? @ -Acute Uncomplicated (without systemic symptoms) or Complicated (systemic symptoms)? @ -Uncomplicated Side effects of treatment? @ -no Exacerbation, Progression, or Severe Exacerbation] @ -no Poses a threat to life or bodily function? @ -no Diagnosis/symptom? @ -Tinea corporis Acute, or Chronic, or Acute on Chronic? @ -acute Uncomplicated (without systemic symptoms) or Complicated (systemic symptoms)? @ -Uncomplicated Side effects of treatment? @ -none Exacerbation, Progression, or Severe Exacerbation] @ -no Poses a threat to life or bodily function? @ -no - Lab Data Result diagrams: 06/03/22 07:34 06/03/22 07:34 Lab Results 06/03/22 06/03/22 06/03/22 Range/Units 07:34 07:34 07:34 WBC 6.2 (3.8-10.6) k/uL RBC 4.64 (4.30-5.90) m/uL Hgb 14.6 (13.0-17.5) gm/dL Hct 42.6 (39.0-53.0) % MCV 91.9 (80.0-100.0) fL MCH 31.5 (25.0-35.0) pg MCHC 34.3 (31.0-37.0) g/dL RDW 13.1 (11.5-15.5) % Plt Count 202 (150-450) k/uL MPV 7.7 Neutrophils % 67 % Lymphocytes % 22 % Monocytes % 5 % Eosinophils % 3 % Basophils % 1 % Neutrophils # 4.1 (1.3-7.7) k/uL Lymphocytes # 1.4 (1.0-4.8) k/uL Monocytes # 0.3 (0-1.0) k/uL Eosinophils # 0.2 (0-0.7) k/uL Basophils # 0.0 (0-0.2) k/uL Sodium 138 (137-145) mmol/L Potassium 4.3 (3.5-5.1) mmol/L Chloride 111 H (98-107) mmol/L Carbon Dioxide 23 (22-30) mmol/L Anion Gap 4 mmol/L BUN 11 (9-20) mg/dL Creatinine 0.70 (0.66-1.25) mg/dL Est GFR (CKD-EPI)AfAm >90 (>60 ml/min/1.73 sqM) Est GFR (CKD-EPI)NonAf >90 (>60 ml/min/1.73 sqM) Glucose 108 H (74-99) mg/dL Calcium 8.4 (8.4-10.2) mg/dL Magnesium 2.1 (1.6-2.3) mg/dL Total Bilirubin 0.3 (0.2-1.3) mg/dL AST 17 (17-59) U/L ALT 17 (4-49) U/L Alkaline Phosphatase 61 (38-126) U/L Troponin I <0.012 (0.000-0.034) ng/mL Total Protein 6.3 (6.3-8.2) g/dL Albumin 4.1 (3.5-5.0) g/dL Disposition Clinical Impression: Tinea corporis, Vertigo Disposition: HOME SELF-CARE Condition: Stable Instructions (If sedation given, give patient instructions): Vertigo (DC) Additional Instructions: Please return to the Emergency Department if symptoms worsen or any other concerns. Prescriptions: Meclizine [Antivert] 25 mg PO TID PRN #15 tab PRN Reason: Vertigo Butenafine HCl [Lotrimin Ultra] 1 applic TOPICAL BID #24 gm Ondansetron Odt [Zofran Odt] 4 mg PO Q8HR PRN #10 tab PRN Reason: Nausea Is patient prescribed a controlled substance at d/c from ED?: No Referrals: Arturo Esparza MD [Primary Care Provider] - 1-2 days Time of Disposition: 09:07
[2022-06-03 07:42] LABS: Basophils % (A) 1 %; Eosinophils # (A) 0.2 k/uL (0-0.7); Eosinophils % (A) 3 %; HCT 42.6 % (39.0-53.0); HGB 14.6 gm/dL (13.0-17.5); Lymphocytes # (A) 1.4 k/uL (1.0-4.8); Lymphocytes % (A) 22 %; MCH 31.5 pg (25.0-35.0); MCHC 34.3 g/dL (31.0-37.0); MCV 91.9 fL (80.0-100.0); Mean Platelet Volume 7.7; Monocytes # (A) 0.3 k/uL (0-1.0); Monocytes % (A) 5 %; Neutrophils # (A) 4.1 k/uL (1.3-7.7); Neutrophils % (A) 67 %; Platelet Count 202 k/uL (150-450); RBC 4.64 m/uL (4.30-5.90); RDW 13.1 % (11.5-15.5); WBC 6.2 k/uL (3.8-10.6)
[2022-06-03 07:49] VITALS: RESP 18
[2022-06-03 07:59] LABS: ALT 17 U/L (4-49); AST 17 U/L (17-59); African American GFR (CKD) >90 (>60 ml/min/1.73 sqM); Albumin 4.1 g/dL (3.5-5.0); Alkaline Phosphatase 61 U/L (38-126); Anion Gap 4 mmol/L; Blood Urea Nitrogen 11 mg/dL (9-20); Calcium 8.4 mg/dL (8.4-10.2); Carbon Dioxide 23 mmol/L (22-30); Chloride 111 mmol/L (98-107); Glucose 108 mg/dL (74-99); Magnesium 2.1 mg/dL (1.6-2.3); Non-African American GFR(CKD) >90 (>60 ml/min/1.73 sqM); Potassium 4.3 mmol/L (3.5-5.1); Sodium 138 mmol/L (137-145); Total Bilirubin 0.3 mg/dL (0.2-1.3); Total Protein 6.3 g/dL (6.3-8.2)
--- NOTE | 2022-06-03 08:15 | XR ---
EXAMINATION TYPE: XR chest 2V DATE OF EXAM: 06/03/2022 COMPARISON: 03/06/2022 HISTORY: 57-year-old male with pain TECHNIQUE: AP and lateral views FINDINGS: The heart is upper limits of normal in size. Aorta and pulmonary vasculature are within normal limits . Some strandy atelectasis in the lower lungs. No pleural effusion. IMPRESSION: Some strandy atelectasis in the lower lungs. Otherwise, no acute process seen.
--- NOTE | 2022-06-03 08:44 | CT ---
EXAMINATION TYPE: CT brain wo con DATE OF EXAM: 06/03/2022 COMPARISON: 11/08/2021 HISTORY: 57-year-old male Nausea, vomiting, and dizziness TECHNIQUE: Examination was done in axial plane without intravenous contrast. Coronal and sagittal r econstructions performed. CT DLP: 1154 mGycm Automated exposure control for dose reduction was used. FINDINGS: There is no evidence of acute intracranial hemorrhage, acute ischemic changes, mass, mass-effect, or extra-axial fluid collection. There is no effacement of cerebral sulci or basal subarachnoid cister ns. There is no hydrocephalus. There is no midline shift. Smith-white matter distinction is preserv ed. Lobulated mucosal thickening right sphenoid sinus. Trace mucosal thickening ethmoid air cells. Orbits and globes are intact. Mastoid air cells well pneumatized. IMPRESSION: No acute intracranial abnormality seen.
[2022-06-03 10:26] VITALS: BP 148/90; PULSE 76; TEMP 97.8
== END 2022-06-03 09:35 | disposition home or self-care (01) ==
LOC: EC 07:00
DX: B35.4 Tinea corporis (principal); R42 Dizziness and giddiness; J44.9 Chronic obstructive pulmonary disease, unspecified; F17.200 Nicotine dependence, unspecified, uncomplicated; Z88.5 Allergy status to narcotic agent; Z79.899 Other long term (current) drug therapy
CPT/HCPCS: 36415; 70450; 71046; 80053; 83735; 84484; 85025; 93005; 96360; 99285

== ENCOUNTER → 2022-09-16 | Outpatient (CLI) | payer OTHER ==
[2022-09-16 16:16] LABS: Basophils # (A) 0.05 X 10*3/uL (0.00-0.10); Basophils % (A) 0.7 %; Eosinophils % (A) 1.4 %; HCT 46.2 % (39.6-50.0); HGB 15.3 g/dL (13.0-17.0); Immature Grans, Automated 0.4 %; Lymphocytes # (A) 1.59 X 10*3/uL (0.90-5.00); Lymphocytes % (A) 22.3 %; MCHC 33.1 g/dL (32.0-37.0); MCV 93.7 fL (80.0-97.0); Mean Platelet Volume 9.7 fL (9.5-12.2); Monocytes # (A) 0.46 X 10*3/uL (0.20-1.00); Monocytes % (A) 6.5 %; NRBC Per 100 WBC 0 /100 WBCS (0.0-0.0); Neutrophils # (A) 4.89 X 10*3/uL (1.80-7.70); Neutrophils % (A) 68.7 %; Platelet Count 213 X 10*3/uL (140-440); RBC 4.93 X 10*6/uL (4.40-5.60); RDW 13.3 % (11.5-14.5); WBC 7.12 X 10*3/uL (4.50-10.00)
[2022-09-16 16:21] LABS: ALT 17 U/L (10-49); AST 16 U/L (14-35); African American GFR (CKD) 107.6 (60.0-200.0); Albumin 4.5 g/dL (3.8-4.9); Albumin/Globulin Ratio 2.43 (1.60-3.17); Alkaline Phosphatase 60 U/L (41-126); BUN/Creat Ratio 11.78 Ratio (12.00-20.00); Blood Urea Nitrogen 10.7 mg/dL (9.0-27.0); Calcium 9.1 mg/dL (8.7-10.3); Carbon Dioxide 23.2 mmol/L (20.0-27.5); Chloride 106 mmol/L (96-109); Chol/HDL Ratio 5.94 Ratio; Globulin 1.8 g/dL (1.6-3.3); Glucose 109 mg/dL (70-110); LDL Cholesterol,Calculated 161.9 mg/dL (0.0-131.0); Non-African American GFR(CKD) 92.8 (60.0-200.0); Potassium 4.7 mmol/L (3.5-5.5); Sodium 139 mmol/L (135-145); Total Protein 6.3 g/dL (6.2-8.2)
== END | disposition home or self-care (01) ==
LOC: LABWHC1 09:44
PROVIDERS: ATTEND Family Medicine
DX: Z13.220 Encounter for screening for lipoid disorders (principal); Z13.1 Encounter for screening for diabetes mellitus; I10 Essential (primary) hypertension; J44.9 Chronic obstructive pulmonary disease, unspecified
CPT/HCPCS: 36415; 80053; 80061; 83036; 85025; 86141

== ENCOUNTER → 2022-11-18 | Outpatient (CLI) | payer OTHER | END | disposition home or self-care (01) | LOC: LABWHC1 09:28 | PROVIDERS: ATTEND Radiology Radiation Oncology | DX: Z00.6 Encounter for examination for normal comparison and control in clinical research program (principal); C61 Malignant neoplasm of prostate; N40.0 Benign prostatic hyperplasia without lower urinary tract symptoms; R35.1 Nocturia | CPT/HCPCS: 36415; 84153 ==

== ENCOUNTER → 2023-05-22 | Outpatient (CLI) | payer OTHER | END | disposition home or self-care (01) | LOC: LABWHC1 10:41 | PROVIDERS: ATTEND Radiology Radiation Oncology | DX: Z00.6 Encounter for examination for normal comparison and control in clinical research program (principal); N40.0 Benign prostatic hyperplasia without lower urinary tract symptoms; R35.1 Nocturia; Z85.46 Personal history of malignant neoplasm of prostate | CPT/HCPCS: 36415; 84153 ==

== ENCOUNTER 2023-12-15 16:46 | Emergency (ER) | payer OTHER ==
[2023-12-15 16:54] VITALS: TEMP 97.4
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
[2023-12-15 21:05] VITALS: BP 145/87; PULSE 64; RESP 16
== END 2023-12-15 21:04 | disposition home or self-care (01) ==
LOC: EC 16:46
DX: S16.1XXA Strain of muscle, fascia and tendon at neck level, initial encounter (principal); M50.222 Other cervical disc displacement at C5-C6 level; F17.200 Nicotine dependence, unspecified, uncomplicated; Z88.5 Allergy status to narcotic agent; V43.52XA Car driver injured in collision with other type car in traffic accident, initial encounter; Y92.410 Unspecified street and highway as the place of occurrence of the external cause
CPT/HCPCS: 99284; 73030; 73080; 73562; 72125; 70450; L0120

== ENCOUNTER → 2024-01-12 | Outpatient (CLI) | payer OTHER ==
--- NOTE | 2024-02-10 09:24 | MR ---
Site ID synapse default Patient Dewey Mccullough H ID [id number] Age/Gender: 58Y, M Order # N/A Procedure MR cervical spine wo con Date 01/12/2024 12:16:13 PM EXAMINATION TYPE: MR cervical spine wo con DATE OF EXAM: 01/22/2024 COMPARISON: None HISTORY: Neck pain into left hand TECHNIQUE: Multiplanar, multisequence images of the cervical spine were acquired without contrast. FINDINGS: Alignment: The cervical vertebral bodies have preserved heights. Alignment is within normal limits gi sari patient positioning. Bones: Bone signal is within normal limits. No abnormal STIR signal. Cord: The spinal cord is unremarkable with regards to their signal intensity and morphology. Discs: Multilevel disc desiccation is present. C2-C3: No significant disc pathology. The spinal canal is patent. No neural foraminal stenosis. C3-C4: No significant disc pathology. The spinal canal is patent. Uncovertebral joint hypertrophy wi th mild right neuroforaminal stenosis. The left neural foramen is patent. C4-C5: No significant disc pathology. The spinal canal is patent. Uncovertebral joint hypertrophy wi th mild right neuroforaminal stenosis. The left neural foramen is patent. C5-C6: Right paracentral disc protrusion with extension into the subarticular zone. Mild effacement o f the anterior thecal sac. Uncovertebral joint hypertrophy. Resultant moderate to severe right neural foraminal stenosis. Left neural foramen is patent. C6-C7: No significant disc pathology. The spinal canal is patent. No neural foraminal stenosis. C7-T1: No significant disc pathology. The spinal canal is patent. No neural foraminal stenosis. Other: None. IMPRESSION: C5-C6 disc herniation results in mild central canal stenosis with moderate to severe right neural for aminal stenosis.
== END | disposition home or self-care (01) ==
LOC: RADMRIMAIN 13:00
PROVIDERS: ATTEND Orthopaedic Surgery
DX: M50.222 Other cervical disc displacement at C5-C6 level (principal); M99.71 Connective tissue and disc stenosis of intervertebral foramina of cervical region
CPT/HCPCS: 72141

== ENCOUNTER → 2024-06-04 | Outpatient (CLI) | payer SELFPAY ==
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
[2024-06-04 15:34] LABS: Basophils # (A) 0.06 X 10*3/uL (0.00-0.10); Basophils % (A) 0.8 %; Eosinophils # (A) 0.15 X 10*3/uL (0.04-0.35); HCT 47.7 % (39.6-50.0); HGB 15.7 g/dL (13.0-17.0); Lymphocytes % (A) 19.8 %; MCH 30.7 pg (27.0-32.0); MCHC 32.9 g/dL (32.0-37.0); MCV 93.2 FL (80.0-97.0); Mean Platelet Volume 10.1 FL (9.5-12.2); Monocytes # (A) 0.58 X 10*3/uL (0.20-1.00); Monocytes % (A) 7.6 %; NRBC Per 100 WBC 0 X 10*3/uL (0.00-0.01); Neutrophils # (A) 5.27 X 10*3/uL (1.80-7.70); Neutrophils % (A) 69.4 %; Platelet Count 216 X 10*3/uL (140-440); RBC 5.12 X 10*6/uL (4.40-5.60); RDW 12.9 % (11.5-14.5); WBC 7.59 X 10*3/uL (4.50-10.00)
[2024-06-04 15:42] LABS: INR 0.95 sec (0.93-1.11); Prothrombin Time 10.9 sec (9.9-11.9)
== END | disposition home or self-care (01) ==
LOC: LABPAT 10:03
PROVIDERS: ATTEND Orthopaedic Surgery
DX: Z01.818 Encounter for other preprocedural examination (principal); Z22.322 Carrier or suspected carrier of Methicillin resistant Staphylococcus aureus; M47.22 Other spondylosis with radiculopathy, cervical region; M50.30 Other cervical disc degeneration, unspecified cervical region
CPT/HCPCS: 71046; 85025; 85610; 86850; 86900; 86901; 87070

== ENCOUNTER 2024-06-10 05:42 | Day surgery (SDC) | payer OTHER ==
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
[~2024-06-10 05:42] MED LIST changes: -DEXAMETHASONE SOD PHOSPHATE 4 MG/ML 1 ML VIAL IV ONE; -HYDROmorphone 0.5 MG/0.5 ML SYRINGE IVP PRN; -LACTATED RINGERS 1,000 ML IV SCH; -LIDOCAINE 1% (10MG/ML) FOR IV START INTRADERMA PRN; -MIDAZOLAM 2 MG/2 ML VIAL IV PRN; -ONDANSETRON 4 MG/2 ML VIAL IVP ONE; +TRANEXAMIC 1,000 MG/100ML-NACL 1,000 MG in SALINE 1 100ML.BAG IVPB PRN
[2024-06-10] MEDS ORDERED: LIDOCAINE 1% (10MG/ML) FOR IV START INTRADERMA PRN (06:07)
[2024-06-10] MEDS ORDERED: ONDANSETRON 4 MG/2 ML VIAL IVP ONE (06:07)
[2024-06-10] MEDS: DEXAMETHASONE SOD PHOSPHATE 4 MG/ML 1 ML VIAL IV ONE (06:53)
[2024-06-10] MEDS: ONDANSETRON 4 MG/2 ML VIAL IVP PRN (06:54)
[2024-06-10] MEDS: GABAPENTIN 300 MG CAP PO PRN (06:54)
[2024-06-10] MEDS: ACETAMINOPHEN TAB 500 MG TAB PO PRN (06:55)
[2024-06-10] MEDS ORDERED: droPERidol 5 MG/2 ML VIAL IVP PRN (07:00)
[2024-06-10] MEDS: LACTATED RINGERS 1,000 ML IV ONE (07:05)
[2024-06-10] MEDS: IV FLUID CONTINUATION 1,000 ML IV ONE ×2 (07:05→11:51)
[2024-06-10] MEDS: LACTATED RINGERS 1,000 ML IV SCH (07:05)
[2024-06-10 07:20] LABS: African American GFR (CKD) >90 (>60 ml/min/1.73 sqM); Anion Gap 6 mmol/L; Blood Urea Nitrogen 11 mg/dL (9-20); Calcium 9.3 mg/dL (8.4-10.2); Carbon Dioxide 29 mmol/L (22-30); Chloride 105 mmol/L (98-107); Glucose 99 mg/dL (74-99); Non-African American GFR(CKD) >90 (>60 ml/min/1.73 sqM); Potassium 4.4 mmol/L (3.5-5.1); Sodium 140 mmol/L (137-145)
[2024-06-10] MEDS: THROMBIN (BOVINE) 5,000 UNIT VIAL TOPICAL ONE (07:57)
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
--- NOTE | 2024-06-10 09:17 | FL ---
EXAMINATION TYPE: FL guidance operating room, XR cervical spine limited DATE OF EXAM: 06/10/2024 CLINICAL HISTORY: Neck pain. TECHNIQUE: Fluoroscopy. Intraoperative limited view cervical spine. COMPARISON: Cervical spine MRI January 12, 2024. FINDINGS: Fluoroscopic guidance was provided during intraoperative cervical surgical procedure perfo rmed by Dr. Judd. A total of 25 seconds of fluoroscopic time was utilized during the procedure and four spot intraoperative images are acquired. Intraoperative images acquired show placement of a anterior fusion plate and metallic disc material a t C5-C6 level. IMPRESSION: As Above. TOTAL DAP = 0.2702 Gy x cm2. [facility], , 06/10/2024 9:15 AM
[2024-06-10 09:41] VITALS: TEMP 97.1
[2024-06-10] MEDS: HYDROmorphone 0.5 MG/0.5 ML SYRINGE IVP PRN (09:43)
[2024-06-10] MEDS: HYDROcodone/APAP 7.5-325MG 1 EACH TAB PO ONE (12:05)
[2024-06-10 12:15] VITALS: RESP 16
[2024-06-10 13:03] VITALS: BP 155/94; PULSE 86
== END 2024-06-10 13:11 | disposition home or self-care (01) ==
LOC: OR 05:42
PROVIDERS: ATTEND Orthopaedic Surgery
DX: M50.122 Cervical disc disorder at C5-C6 level with radiculopathy (principal); M50.022 Cervical disc disorder at C5-C6 level with myelopathy; M48.02 Spinal stenosis, cervical region; I10 Essential (primary) hypertension; J44.9 Chronic obstructive pulmonary disease, unspecified; K21.9 Gastro-esophageal reflux disease without esophagitis; Z91.89 Other specified personal risk factors, not elsewhere classified; F17.200 Nicotine dependence, unspecified, uncomplicated; Z79.1 Long term (current) use of non-steroidal anti-inflammatories (NSAID); Z79.51 Long term (current) use of inhaled steroids; Z79.899 Other long term (current) drug therapy; Z85.46 Personal history of malignant neoplasm of prostate; Z87.820 Personal history of traumatic brain injury; Z86.73 Personal history of transient ischemic attack (TIA), and cerebral infarction without residual deficits; Z88.5 Allergy status to narcotic agent; V43.52XA Car driver injured in collision with other type car in traffic accident, initial encounter; Y92.410 Unspecified street and highway as the place of occurrence of the external cause
CPT/HCPCS: 80048; 72040; 22551; 22853; 20930; 20936; 22845; J1100; J0690; J2405; J1171